=== PATIENT | female | born 1935 | race Caucasian/White ===

== ENCOUNTER 2019-03-06 17:18 | Inpatient (IN) | payer MEDICARE, MEDICAID ==
[~2019-03-06] VITALS: Ht 157.5 cm; Wt 72.6 kg
[~2019-03-06 17:18] MED LIST: ADVAIR 250-501 EACH INH; ALLOPURINOL100 M1 ORAL; ARICEPT10 MG ORAL; ASPIRIN-LOW81 MG ORAL; ATELVIA35 MG ORAL; ATORVASTATIN CA10 MG ORAL; BYSTOLIC10 MG ORAL; CAPTOPRIL25 M1 PO; CYMBALTA30 MG ORAL; EDARBYCLOR 40-1 EAC1 ORAL; GABAPENTIN300 MG ORAL; LASTACAFT3 ML BOTH EYES; NEXIUM40 MG ORAL; PRECOSE50 MG ORAL; RISPERIDONE0.5 MG PO; STARLIX120 MG ORAL; SYNTHROID100 MCG ORAL; VITAMIN D1000 UNI1 ORAL; VITAMIN D250000 UNI1 ORAL
[2019-03-06 17:48] VITALS: BP 162/54
[2019-03-06 18:41] LABS: ANION GAP 7 mmol/L (5-15); BLOOD UREA NITROGEN 21 mg/dL (7-18); CALCIUM 9.3 MG/DL (8.5-10.1); CARBON DIOXIDE 30 MMOL/L (21-32); CHLORIDE 105 MMOL/L (98-107); CREATININE 1.1 MG/DL (0.55-1.30); SODIUM 142 MMOL/L (136-145)
[2019-03-06 18:46] LABS: BASOPHILS % (AUTO) 0.9 % (0.0-2.0); EOSINOPHILS % (AUTO) 1.8 % (0.0-3.0); HEMATOCRIT 37.9 % (37.0-47.0); HEMOGLOBIN 12.2 G/DL (12.0-16.0); LYMPHOCYTES % (AUTO) 21.2 % (20.0-45.0); MEAN CORPUSCULAR VOLUME 85 FL (80-99); MONOCYTES % (AUTO) 12.5 % (1.0-10.0); NEUTROPHILS % (AUTO) 63.6 % (45.0-75.0); PLATELET COUNT 191 K/UL (150-450); RED BLOOD COUNT 4.47 M/UL (4.20-5.40); RED CELL DISTRIBUTION WIDTH 13.2 % (11.6-14.8)
[2019-03-06 18:56] LABS: ALANINE AMINOTRANSFERASE 18 U/L (12-78); ALBUMIN 3.3 G/DL (3.4-5.0); ALBUMIN/GLOBULIN RATIO 0.9 (1.0-2.7); ALKALINE PHOSPHATASE 99 U/L (46-116); ASPARTATE AMINO TRANSFERASE 19 U/L (15-37); BILIRUBIN,TOTAL 0.2 MG/DL (0.2-1.0); CKMB 1.4 NG/ML (0.0-3.6); CREATINE KINASE 64 U/L (26-308)
[2019-03-06 19:03] LABS: APPEARANCE,URINE SLIGHTLY CLOUDY; BILIRUBIN, URINE NEGATIVE (NEGATIVE); COLOR,URINE PALE YELLOW; GLUCOSE, URINE (UA) NEGATIVE (NEGATIVE); KETONES,URINE NEGATIVE (NEGATIVE); LEUKOCYTE ESTERASE ,URINE 2+ (NEGATIVE); NITRITE,URINE POSITIVE (NEGATIVE); PH,URINE 5 (4.5-8.0); PROTEIN,URINE 1+ (NEGATIVE); UROBILINOGEN,URINE NORMAL MG/DL (0.0-1.0)
[2019-03-06 19:52] VITALS: BP 162/54
--- NOTE | 2019-03-06 21:57 | Emergency Room Report ---
History of Present Illness General Chief Complaint: Upper Respiratory Illness Source: Patient, Family Member, Medical Record Present Illness HPI 83-year-old female presents ED for evaluation. Brought in by family for cough shortness of breath for the last few days. States cough is productive with yellowish phlegm. Denies fevers or chills. Denies chest pain. Denies sick contacts or recent travel. No other aggravating relieving factors. Denies any other associated symptoms Allergies: Coded Allergies: No Known Allergies (Unverified , 04/08/14) Patient History Past Medical History: DM, HTN, asthma Pertinent Family History: none Social History: Denies: smoking, alcohol use, drug use Now: No Immunizations: UTD Reviewed Nursing Documentation: PMH: Agreed; PSxH: Agreed Nursing Documentation-PMH Hx Cardiac Problems: Yes Hx Hypertension: Yes Hx Asthma: Yes Hx Diabetes: Yes Hx Cancer: No Hx Gastrointestinal Problems: Yes Hx Neurological Problems: No Review of Systems All Other Systems: negative except mentioned in HPI Physical Exam Vital Signs Date Time Temp Pulse Resp B/P (MAP) Pulse Ox O2 Delivery O2 Flow Rate FiO2 03/06/19 17:31 98.2 54 16 162/54 (90) 94 Room Air 03/06/19 17:46 95 Sp02 EP Interpretation: reviewed, normal General Appearance: no apparent distress, alert, GCS 15, non-toxic Head: normocephalic, atraumatic Eyes: bilateral eye normal inspection, bilateral eye PERRL ENT: hearing grossly normal, normal pharynx, no angioedema, normal voice Neck: full range of motion, supple/symm/no masses Respiratory: chest non-tender, crackles, speaking full sentences Cardiovascular #1: regular rate, rhythm, no edema Cardiovascular #2: 2+ carotid (R), 2+ carotid (L), 2+ radial (R), 2+ radial (L) , 2+ dorsalis pedis (R), 2+ dorsalis pedis (L) Gastrointestinal: normal bowel sounds, non tender, soft, non-distended, no guarding, no rebound Rectal: deferred Genitourinary: normal inspection, no CVA tenderness Musculoskeletal: back normal, gait/station normal, normal range of motion, non- tender Neurologic: alert, oriented x3, responsive, motor strength/tone normal, sensory intact, speech normal Psychiatric: judgement/insight normal, memory normal, mood/affect normal, no suicidal/homicidal ideation Reflexes: 3+ bicep (R), 3+ bicep (L), 3+ tricep (R), 3+ tricep (L), 3+ knee (R) , 3+ knee (L) Skin: normal color, no rash, warm/dry, well hydrated Lymphatic: no adenopathy Medical Decision Making Diagnostic Impression: Primary Impression: CHF exacerbation Qualified Codes: I50.9 - Heart failure, unspecified Additional Impression: UTI (urinary tract infection) Qualified Codes: N39.0 - Urinary tract infection, site not specified ER Course Hospital Course 83-year-old female presents ED complaining of shortness of breath, cough Differential diagnoses include: [place]/unstable angina, contusion, muscle strain, PTX, rib fracture Clinical course Patient placed on stretcher. on radiation monitor. After initial history and physical I ordered labs, EKG, chest x-ray labs reviewed- no leukocytosis, hemoglobin/hematocrit stable, , troponins negative, BNP elevated, UA + bacteria EKG - NSR, no acute ischemic changes interpreted by me Chest x-ray- interstitial congestion, cardiomegaly Antibiotics given. Lasix given. Case discussed with Dr. Ann and he agreed to accept the patient to his service for further care and support I. I feel this is a highly complex case requiring extensive working including EKG/Rhythm strip, Xray/CT/US, Blood/urine lab work, repeat exams while in ED, and administration of strong opiates/narcotics for pain control, admission to hospital or close patient follow up. Diagnosis - CHF exacerbation, UTI admitted to telemetry in serious condition Labs Test 03/06/19 18:10 03/06/19 18:30 White Blood Count 7.0 K/UL (4.8-10.8) Red Blood Count 4.47 M/UL (4.20-5.40) Hemoglobin 12.2 G/DL (12.0-16.0) Hematocrit 37.9 % (37.0-47.0) Mean Corpuscular Volume 85 FL (80-99) Mean Corpuscular Hemoglobin 27.2 PG (27.0-31.0) Mean Corpuscular Hemoglobin Concent 32.2 G/DL (32.0-36.0) Red Cell Distribution Width 13.2 % (11.6-14.8) Platelet Count 191 K/UL (150-450) Mean Platelet Volume 6.1 FL (6.5-10.1) Neutrophils (%) (Auto) 63.6 % (45.0-75.0) Lymphocytes (%) (Auto) 21.2 % (20.0-45.0) Monocytes (%) (Auto) 12.5 % (1.0-10.0) Eosinophils (%) (Auto) 1.8 % (0.0-3.0) Basophils (%) (Auto) 0.9 % (0.0-2.0) Sodium Level 142 MMOL/L (136-145) Potassium Level 4.0 MMOL/L (3.5-5.1) Chloride Level 105 MMOL/L (98-107) Carbon Dioxide Level 30 MMOL/L (21-32) Anion Gap 7 mmol/L (5-15) Blood Urea Nitrogen 21 mg/dL (7-18) Creatinine 1.1 MG/DL (0.55-1.30) Estimat Glomerular Filtration Rate mL/min (>60) Glucose Level 109 MG/DL (74-106) Lactic Acid Level 0.90 mmol/L (0.4-2.0) Calcium Level 9.3 MG/DL (8.5-10.1) Total Bilirubin 0.2 MG/DL (0.2-1.0) Aspartate Amino Transf (AST/SGOT) 19 U/L (15-37) Alanine Aminotransferase (ALT/SGPT) 18 U/L (12-78) Alkaline Phosphatase 99 U/L (46-116) Total Creatine Kinase 64 U/L (26-308) Creatine Kinase MB 1.4 NG/ML (0.0-3.6) Creatine Kinase MB Relative Index 2.1 Troponin I 0.000 ng/mL (0.000-0.056) Pro-B-Type Natriuretic Peptide 1793 pg/mL (0-125) Total Protein 6.9 G/DL (6.4-8.2) Albumin 3.3 G/DL (3.4-5.0) Globulin 3.6 g/dL Albumin/Globulin Ratio 0.9 (1.0-2.7) Urine Color Pale yellow Urine Appearance Slightly cloudy Urine pH 5 (4.5-8.0) Urine Specific [place] 1.015 (1.005-1.035) Urine Protein 1+ (NEGATIVE) Urine Glucose (UA) Negative (NEGATIVE) Urine Ketones Negative (NEGATIVE) Urine Blood Negative (NEGATIVE) Urine Nitrite Positive (NEGATIVE) Urine Bilirubin Negative (NEGATIVE) Urine Urobilinogen Normal MG/DL (0.0-1.0) Urine Leukocyte Esterase 2+ (NEGATIVE) Urine RBC 0 /HPF (0 - 2) Urine WBC 15-20 /HPF (0 - 2) Urine Squamous Epithelial Cells Occasional /LPF Urine Bacteria Many /HPF (NONE) EKG Diagnostic Results Rate: bradycardiac Rhythm: NSR ST Segments: no acute changes ASA given to the pt in ED: No Rhythm Strip Diag. Results EP Interpretation: yes Rhythm: NSR, no PVC's, no ectopy Chest X-Ray Diagnostic Results Chest X-Ray Diagnostic Results : Chest X-Ray Ordered: Yes # of Views/Limited/Complete: 1 View Indication: Shortness of Breath EP Interpretation: Yes Interpretation: no pneumothorax, other - cardiomegaly. interstitial congestion Impression: Other - chf Electronically Signed by: Electronically signed by Hung Miguel MD Last Vital Signs Date Time Temp Pulse Resp B/P (MAP) Pulse Ox O2 Delivery O2 Flow Rate FiO2 03/06/19 19:52 98.2 54 16 162/54 95 Room Air 95 Status: improved Disposition: ADMITTED INPATIENT Condition: Serious Referrals: NON PHYSICIAN (PCP) Hung Miguel MD Mar 06, 2019 21:57
[2019-03-06] MEDS ORDERED: Morphine Sulfate 2mg/ml Inj(IV/IM USE ONLY) IVP PRN (22:30)
[2019-03-06] MEDS ORDERED: Nitroglycerin Subl 0.4mg tab SL PRN (22:30)
[2019-03-06] MEDS ORDERED: dilTIAZem HCl 25mg/5ml Inj IV PRN (22:30)
[2019-03-06] MEDS ORDERED: Albuterol/Ipratropium 3ml neb HHN PRN (22:30)
[2019-03-06] MEDS ORDERED: Miralax 17gm pkt ORAL PRN (22:30)
[2019-03-06 22:40] VITALS: BP 157/63
[2019-03-06] MEDS ORDERED: Promethazine/Codeine 5ml UD ORAL PRN (22:45)
[2019-03-07] VITALS (7 sets, daily range): BP systolic 108–165; BP diastolic 53–78
[2019-03-07] MEDS: Enalaprilat 2.5mg/2ml Inj IV PRN (04:23)
[2019-03-07] MEDS: NovoLOG Insulin Flexpen SUBQ SCH ×4 (06:25→21:03)
[2019-03-07 06:39] LABS: BASOPHILS % (AUTO) 0.3 % (0.0-2.0); EOSINOPHILS % (AUTO) 0.4 % (0.0-3.0); HEMATOCRIT 37.1 % (37.0-47.0); LYMPHOCYTES % (AUTO) 7.6 % (20.0-45.0); MEAN CORPUSCULAR VOLUME 87 FL (80-99); MONOCYTES % (AUTO) 6.8 % (1.0-10.0); NEUTROPHILS % (AUTO) 84.9 % (45.0-75.0); PLATELET COUNT 200 K/UL (150-450); RED BLOOD COUNT 4.27 M/UL (4.20-5.40); RED CELL DISTRIBUTION WIDTH 13.4 % (11.6-14.8); WHITE BLOOD COUNT 10.1 K/UL (4.8-10.8)
[2019-03-07 07:28] LABS: ALANINE AMINOTRANSFERASE 19 U/L (12-78); ALBUMIN 3.2 G/DL (3.4-5.0); ALBUMIN/GLOBULIN RATIO 0.9 (1.0-2.7); ALKALINE PHOSPHATASE 88 U/L (46-116); ANION GAP 9 mmol/L (5-15); ASPARTATE AMINO TRANSFERASE 22 U/L (15-37); BILIRUBIN,TOTAL 0.4 MG/DL (0.2-1.0); BLOOD UREA NITROGEN 20 mg/dL (7-18); CALCIUM 9.3 MG/DL (8.5-10.1); CARBON DIOXIDE 31 MMOL/L (21-32); CHLORIDE 100 MMOL/L (98-107); CHOLESTEROL 128 MG/DL (< 200); CREATININE 1.1 MG/DL (0.55-1.30); HDL CHOLESTEROL 58 MG/DL (40-60); POTASSIUM 3.5 MMOL/L (3.5-5.1); SODIUM 140 MMOL/L (136-145); TRIGLYCERIDES 40 MG/DL (30-150)
[2019-03-07] MEDS: Allopurinol 100mg Tab ORAL SCH (09:28)
[2019-03-07] MEDS: Aspirin Baby 81mg ORAL SCH (09:28)
[2019-03-07] MEDS: DULoxetine 30mg cap ORAL SCH (09:28)
[2019-03-07] MEDS: Heparin 5000 units/ml inj SUBQ SCH ×2 (09:30→20:53)
--- NOTE | 2019-03-07 09:36 | Diagnostic Imaging Report ---
Indication: Chest pain Technique: One view of the chest Comparison: 03/06/2019 Findings: Retrocardiac opacity, likely a hiatal hernia, is again demonstrated. The heart is upper limits normal in size. Mild interstitial prominence appears similar to prior exam, may indicate interstitial congestive changes or could be on the basis senescent changes. No focal airspace consolidation. Pleural spaces are clear. No significant interim change Impression: Unchanged, over one day, findings as above.
--- NOTE | 2019-03-07 09:39 | Diagnostic Imaging Report ---
Indication: Quadrant Technique: One view of the chest Comparison: none Findings: No definite acute infiltrates, effusions, or congestion. Heart is upper limits normal in size. Large retrocardiac opacity likely reflects a hiatal hernia. Impression: No definite acute process Probable large hiatal hernia
--- NOTE | 2019-03-07 13:29 | Consultation ---
History of Present Illness General Chief Complaint: Upper Respiratory Illness Present Illness HPI 83-year-old female with hx of DM, HTN, asthma presented to ED for evaluation cough, shortness of breath for the last few days. States cough is productive with yellowish phlegm. Denies fevers or chills. Denies chest pain. Allergies: Coded Allergies: No Known Allergies (Unverified , 04/08/14) Medication History Scheduled Acarbose (Acarbose), 25 MG ORAL THREE TIMES A DAY, (Reported) Alcaftadine (Lastacaft), 1 DROP BOTH EYES DAILY, (Reported) Allopurinol* (Allopurinol*), 100 MG ORAL DAILY, (Reported) Aspirin (Aspirin EC), 81 MG ORAL DAILY, (Reported) Atorvastatin Calcium* (Lipitor*), 10 MG ORAL BEDTIME, (Reported) Azilsartan Med/Chlorthalidone (Edarbyclor 40-25 Mg Tablet), 1 TAB ORAL DAILY, ( Reported) Captopril (Captopril), 25 MG PO NEEDED, (Reported) Cholecalciferol (Vitamin D3)* (Vitamin D*), 2,000 UNITS ORAL DAILY, (Reported) Donepezil Hcl* (Aricept*), 10 MG ORAL DAILY, (Reported) Duloxetine Hcl* (Cymbalta*), 30 MG ORAL DAILY, (Reported) Ergocalciferol (Vitamin D2)* (Vitamin D*), 50,000 UNIT ORAL ONCE A WEEK, ( Reported) Esomeprazole Magnesium (Nexium), 40 MG ORAL DAILY, (Reported) Fluticasone/Salmeterol (Advair 250-50 Diskus), 1 PUFF INH NEEDED, (Reported) Gabapentin* (Gabapentin*), 300 MG ORAL BEDTIME, (Reported) Levothyroxine Sodium* (Synthroid*), 100 MCG ORAL DAILY, (Reported) Nateglinide (Starlix), 120 MG ORAL BID, (Reported) Nebivolol Hcl (Bystolic*), 5 MG ORAL BEDTIME, (Reported) Risedronate Sodium (Atelvia), 35 MG ORAL ONCE A WEEK, (Reported) Risperidone (Risperidone), 0.5 MG PO BEDTIME, (Reported) Patient History Healthcare decision maker Resuscitation status Full Code Advanced Directive on File Past Medical/Surgical History Past Medical/Surgical History: (1) Hypertension (2) History of asthma Review of Systems All Other Systems: negative except mentioned in HPI Physical Exam General Appearance: WD/WN, no apparent distress Lines, tubes and drains: peripheral HEENT: normocephalic, atraumatic Neck: non-tender, normal alignment Respiratory/Chest: chest wall non-tender, lungs clear Breasts: no masses Cardiovascular/Chest: normal peripheral pulses Abdomen: normal bowel sounds, non tender Genitourinary/Rectal: normal genital exam Extremities: normal range of motion Last 24 Hour Vital Signs Date Time Temp Pulse Resp B/P (MAP) Pulse Ox O2 Delivery O2 Flow Rate FiO2 03/07/19 12:00 98.4 64 19 127/71 (89) 96 03/07/19 11:47 68 18 96 Room Air 21 03/07/19 11:47 68 18 96 Room Air 21 03/07/19 09:00 Room Air 03/07/19 08:04 64 18 98 Room Air 21 03/07/19 08:00 64 18 98 Room Air 21 03/07/19 08:00 60 03/07/19 08:00 97.2 62 18 108/70 (83) 99 03/07/19 04:23 165/67 03/07/19 04:00 99.8 71 20 165/66 (99) 94 03/07/19 04:00 66 03/07/19 02:39 63 16 92 Room Air 21 03/07/19 02:39 65 16 94 Room Air 21 03/07/19 00:00 61 03/07/19 00:00 98.0 58 20 158/65 (96) 95 03/06/19 22:40 58 03/06/19 22:40 98.0 61 20 157/63 (94) 98 03/06/19 22:40 Room Air 03/06/19 22:20 98.2 54 16 132/67 95 Room Air 95 03/06/19 19:52 98.2 54 16 162/54 95 Room Air 95 03/06/19 17:48 98.2 54 16 162/54 95 Room Air 03/06/19 17:46 54 16 Room Air 95 03/06/19 17:31 98.2 54 16 162/54 (90) 94 Room Air Intake and Output 03/06/19 03/07/19 19:00 07:00 Intake Total 120 ml Output Total 3800 ml Balance -3680 ml Intake Oral 120 ml Output Urine Total 3800 ml Laboratory Tests Test 03/06/19 18:10 03/06/19 18:30 03/07/19 04:50 White Blood Count 7.0 K/UL (4.8-10.8) 10.1 K/UL (4.8-10.8) Red Blood Count 4.47 M/UL (4.20-5.40) 4.27 M/UL (4.20-5.40) Hemoglobin 12.2 G/DL (12.0-16.0) 12.0 G/DL (12.0-16.0) Hematocrit 37.9 % (37.0-47.0) 37.1 % (37.0-47.0) Mean Corpuscular Volume 85 FL (80-99) 87 FL (80-99) Mean Corpuscular Hemoglobin 27.2 PG (27.0-31.0) 28.1 PG (27.0-31.0) Mean Corpuscular Hemoglobin Concent 32.2 G/DL (32.0-36.0) 32.3 G/DL (32.0-36.0) Red Cell Distribution Width 13.2 % (11.6-14.8) 13.4 % (11.6-14.8) Platelet Count 191 K/UL (150-450) 200 K/UL (150-450) Mean Platelet Volume 6.1 FL (6.5-10.1) L 6.5 FL (6.5-10.1) Neutrophils (%) (Auto) 63.6 % (45.0-75.0) 84.9 % (45.0-75.0) H Lymphocytes (%) (Auto) 21.2 % (20.0-45.0) 7.6 % (20.0-45.0) L Monocytes (%) (Auto) 12.5 % (1.0-10.0) H 6.8 % (1.0-10.0) Eosinophils (%) (Auto) 1.8 % (0.0-3.0) 0.4 % (0.0-3.0) Basophils (%) (Auto) 0.9 % (0.0-2.0) 0.3 % (0.0-2.0) Sodium Level 142 MMOL/L (136-145) 140 MMOL/L (136-145) Potassium Level 4.0 MMOL/L (3.5-5.1) 3.5 MMOL/L (3.5-5.1) Chloride Level 105 MMOL/L (98-107) 100 MMOL/L (98-107) Carbon Dioxide Level 30 MMOL/L (21-32) 31 MMOL/L (21-32) Anion Gap 7 mmol/L (5-15) 9 mmol/L (5-15) Blood Urea Nitrogen 21 mg/dL (7-18) H 20 mg/dL (7-18) H Creatinine 1.1 MG/DL (0.55-1.30) 1.1 MG/DL (0.55-1.30) Estimat Glomerular Filtration Rate mL/min (>60) mL/min (>60) Glucose Level 109 MG/DL (74-106) H 124 MG/DL (74-106) H Lactic Acid Level 0.90 mmol/L (0.4-2.0) Calcium Level 9.3 MG/DL (8.5-10.1) 9.3 MG/DL (8.5-10.1) Total Bilirubin 0.2 MG/DL (0.2-1.0) 0.4 MG/DL (0.2-1.0) Aspartate Amino Transf (AST/SGOT) 19 U/L (15-37) 22 U/L (15-37) Alanine Aminotransferase (ALT/SGPT) 18 U/L (12-78) 19 U/L (12-78) Alkaline Phosphatase 99 U/L (46-116) 88 U/L (46-116) Total Creatine Kinase 64 U/L (26-308) Creatine Kinase MB 1.4 NG/ML (0.0-3.6) Creatine Kinase MB Relative Index 2.1 Troponin I 0.000 ng/mL (0.000-0.056) 0.000 ng/mL (0.000-0.056) Pro-B-Type Natriuretic Peptide 1793 pg/mL (0-125) H 2087 pg/mL (0-125) H Total Protein 6.9 G/DL (6.4-8.2) 6.9 G/DL (6.4-8.2) Albumin 3.3 G/DL (3.4-5.0) L 3.2 G/DL (3.4-5.0) L Globulin 3.6 g/dL 3.7 g/dL Albumin/Globulin Ratio 0.9 (1.0-2.7) L 0.9 (1.0-2.7) L Urine Color Pale yellow Urine Appearance Slightly cloudy Urine pH 5 (4.5-8.0) Urine Specific [place] 1.015 (1.005-1.035) Urine Protein 1+ (NEGATIVE) H Urine Glucose (UA) Negative (NEGATIVE) Urine Ketones Negative (NEGATIVE) Urine Blood Negative (NEGATIVE) Urine Nitrite Positive (NEGATIVE) H Urine Bilirubin Negative (NEGATIVE) Urine Urobilinogen Normal MG/DL (0.0-1.0) Urine Leukocyte Esterase 2+ (NEGATIVE) H Urine RBC 0 /HPF (0 - 2) Urine WBC 15-20 /HPF (0 - 2) H Urine Squamous Epithelial Cells Occasional /LPF Urine Bacteria Many /HPF (NONE) H Prothrombin Time 10.8 SEC (9.30-11.50) Prothromb Time International Ratio 1.0 (0.9-1.1) Activated Partial Thromboplast Time 28 SEC (23-33) C-Reactive Protein, Quantitative 4.5 mg/dL (0.00-0.90) H Triglycerides Level 40 MG/DL (30-150) Cholesterol Level 128 MG/DL (< 200) LDL Cholesterol 64 mg/dL (<100) HDL Cholesterol 58 MG/DL (40-60) Cholesterol/HDL Ratio 2.2 (3.3-4.4) L Thyroid Stimulating Hormone (TSH) 0.563 uiU/mL (0.358-3.740) Microbiology Date/Time Source Procedure Growth Status 03/06/19 18:30 Urine,Clean Catch Urine Culture - Preliminary Gram Negative Bacillus 1 Resulted Height (Feet): 5 Height (Inches): 2.00 Weight (Pounds): 160 Medications Current Medications Medications (Trade) Dose Ordered Sig/Gino Route PRN Reason Start Time Stop Time Status Last Admin Dose Admin Acetaminophen (Tylenol) 650 mg Q4H PRN ORAL FEVER 03/06/19 22:30 04/05/19 22:29 Albuterol/ Ipratropium (Albuterol/ Ipratropium) 3 ml EVERY 4 HOURS PRN HHN Shortness of Breath 03/06/19 22:30 03/11/19 22:29 Allopurinol (Zyloprim) 100 mg DAILY ORAL 03/07/19 09:00 04/06/19 08:59 03/07/19 09:28 Aspirin (ASA) 162 mg DAILY ORAL 03/07/19 09:00 04/06/19 08:59 03/07/19 09:28 Dextrose (Dextrose 50%) STAT PRN IV Hypoglycemia 03/06/19 22:45 04/05/19 22:44 Diltiazem HCl (Cardizem) 10 mg EVERY HOUR PRN IV heart rate more than 120, 03/06/19 22:30 04/05/19 22:29 Duloxetine HCl (Cymbalta) 30 mg DAILY ORAL 03/07/19 09:00 04/06/19 08:59 03/07/19 09:28 Enalaprilat (Vasotec) 2.5 mg EVERY 6 HOURS PRN IV sbp more than 160 03/06/19 22:30 04/05/19 22:29 03/07/19 04:23 Gabapentin (Neurontin) 300 mg BEDTIME ORAL 03/07/19 21:00 04/06/19 20:59 Heparin Sodium (Porcine) (Heparin 5000 units/ml) 5,000 units EVERY 12 HOURS SUBQ 03/07/19 09:00 04/06/19 08:59 03/07/19 09:30 Insulin Aspart (NovoLOG) BEFORE MEALS AND HS SUBQ 03/07/19 06:30 04/06/19 06:29 03/07/19 06:25 Levofloxacin 150 ml @ 150 mls/hr Q48H IVPB 03/08/19 20:00 03/15/19 19:59 Levothyroxine Sodium (Synthroid) 100 mcg ACBREAKFAST ORAL 03/07/19 06:30 04/06/19 06:29 03/07/19 06:24 Morphine Sulfate (Morphine Sulfate) 2 mg EVERY 4 HOURS PRN IVP severe Pain (Pain Scale 7-10) 03/06/19 22:30 03/13/19 22:29 Nateglinide (Starlix) 120 mg BID ORAL 03/07/19 09:00 04/06/19 08:59 03/07/19 09:28 Nebivolol (Bystolic) 5 mg BEDTIME ORAL 03/07/19 21:00 04/06/19 20:59 Nitroglycerin (Ntg) 0.4 mg Q5M PRN SL Prn Chest Pain 03/06/19 22:30 04/05/19 22:29 Ondansetron HCl (Zofran) 4 mg Q6H PRN IVP Nausea & Vomiting 03/06/19 22:30 04/05/19 22:29 Polyethylene Glycol (Miralax) 17 gm DAILYPRN PRN ORAL Constipation 03/06/19 22:30 04/05/19 22:29 Promethazine HCl/ Codeine (Phenergan with Codeine) 5 ml Q4H PRN ORAL For Cough 03/06/19 22:45 04/05/19 22:44 Temazepam (Restoril) 15 mg HSPRN PRN ORAL Insomnia 03/06/19 22:30 03/13/19 22:29 Assessment/Plan Problem List: (1) Purulent bronchitis ICD Codes: J41.1 - Mucopurulent chronic bronchitis SNOMED: 08988501 (2) Acute asthma exacerbation ICD Codes: J45.901 - Unspecified asthma with (acute) exacerbation SNOMED: 992197980 (3) Hypertension ICD Codes: I10 - Essential (primary) hypertension SNOMED: 21580925 (4) History of asthma ICD Codes: Z87.09 - Personal history of other diseases of the respiratory system SNOMED: 883274426 Assessment/Plan: respiratory treatment check sputum iv steroids iv abx echocardiogram dvt prophylaxis. monitor BP and BNP Aurora Gray MD Mar 07, 2019 13:29
--- NOTE | 2019-03-07 19:01 | History & Physical ---
History and Physical History & Physicial Rob Ann MD Mar 07, 2019 19:01
--- NOTE | 2019-03-07 20:21 | Cardiology Progress Note ---
Assessment/Plan Assessment/Plan [id number] Objective Last 24 Hour Vital Signs Date Time Temp Pulse Resp B/P (MAP) Pulse Ox O2 Delivery O2 Flow Rate FiO2 03/07/19 19:19 Room Air 03/07/19 19:18 72 20 95 Room Air 21 03/07/19 19:18 75 20 95 Room Air 21 03/07/19 16:00 98.0 74 20 156/78 (104) 93 03/07/19 16:00 73 03/07/19 14:59 69 18 95 Room Air 21 03/07/19 14:59 67 18 94 Room Air 21 03/07/19 12:00 98.4 64 19 127/71 (89) 96 03/07/19 12:00 66 03/07/19 11:47 68 18 96 Room Air 21 03/07/19 11:47 68 18 96 Room Air 21 03/07/19 09:00 Room Air 03/07/19 08:04 64 18 98 Room Air 21 03/07/19 08:00 64 18 98 Room Air 21 03/07/19 08:00 60 03/07/19 08:00 97.2 62 18 108/70 (83) 99 03/07/19 08:00 64 18 98 Room Air 21 03/07/19 04:23 165/67 03/07/19 04:00 99.8 71 20 165/66 (99) 94 03/07/19 04:00 66 03/07/19 02:39 63 16 92 Room Air 21 03/07/19 02:39 65 16 94 Room Air 03/07/19 00:00 61 03/07/19 00:00 98.0 58 20 158/65 (96) 95 03/06/19 22:40 58 03/06/19 22:40 98.0 61 20 157/63 (94) 98 03/06/19 22:40 Room Air 03/06/19 22:20 98.2 54 16 132/67 95 Room Air 95 Intake and Output 03/06/19 03/07/19 18:59 06:59 Output Total 3800 ml Balance -3800 ml Output Urine Total 3800 ml Laboratory Tests Test 03/07/19 04:50 White Blood Count 10.1 K/UL (4.8-10.8) Red Blood Count 4.27 M/UL (4.20-5.40) Hemoglobin 12.0 G/DL (12.0-16.0) Hematocrit 37.1 % (37.0-47.0) Mean Corpuscular Volume 87 FL (80-99) Mean Corpuscular Hemoglobin 28.1 PG (27.0-31.0) Mean Corpuscular Hemoglobin Concent 32.3 G/DL (32.0-36.0) Red Cell Distribution Width 13.4 % (11.6-14.8) Platelet Count 200 K/UL (150-450) Mean Platelet Volume 6.5 FL (6.5-10.1) Neutrophils (%) (Auto) 84.9 % (45.0-75.0) H Lymphocytes (%) (Auto) 7.6 % (20.0-45.0) L Monocytes (%) (Auto) 6.8 % (1.0-10.0) Eosinophils (%) (Auto) 0.4 % (0.0-3.0) Basophils (%) (Auto) 0.3 % (0.0-2.0) Prothrombin Time 10.8 SEC (9.30-11.50) Prothromb Time International Ratio 1.0 (0.9-1.1) Activated Partial Thromboplast Time 28 SEC (23-33) Sodium Level 140 MMOL/L (136-145) Potassium Level 3.5 MMOL/L (3.5-5.1) Chloride Level 100 MMOL/L (98-107) Carbon Dioxide Level 31 MMOL/L (21-32) Anion Gap 9 mmol/L (5-15) Blood Urea Nitrogen 20 mg/dL (7-18) H Creatinine 1.1 MG/DL (0.55-1.30) Estimat Glomerular Filtration Rate mL/min (>60) Glucose Level 124 MG/DL (74-106) H Calcium Level 9.3 MG/DL (8.5-10.1) Total Bilirubin 0.4 MG/DL (0.2-1.0) Aspartate Amino Transf (AST/SGOT) 22 U/L (15-37) Alanine Aminotransferase (ALT/SGPT) 19 U/L (12-78) Alkaline Phosphatase 88 U/L (46-116) Troponin I 0.000 ng/mL (0.000-0.056) C-Reactive Protein, Quantitative 4.5 mg/dL (0.00-0.90) H Pro-B-Type Natriuretic Peptide 2087 pg/mL (0-125) H Total Protein 6.9 G/DL (6.4-8.2) Albumin 3.2 G/DL (3.4-5.0) L Globulin 3.7 g/dL Albumin/Globulin Ratio 0.9 (1.0-2.7) L Triglycerides Level 40 MG/DL (30-150) Cholesterol Level 128 MG/DL (< 200) LDL Cholesterol 64 mg/dL (<100) HDL Cholesterol 58 MG/DL (40-60) Cholesterol/HDL Ratio 2.2 (3.3-4.4) L Thyroid Stimulating Hormone (TSH) 0.563 uiU/mL (0.358-3.740) Microbiology Date/Time Source Procedure Growth Status 03/06/19 18:30 Urine,Clean Catch Urine Culture - Preliminary Gram Negative Bacillus 1 Resulted Graham Almendarez MD Mar 07, 2019 20:21
--- NOTE | 2019-03-07 22:00 | Consultation ---
DATE OF CONSULTATION: 03/07/2019 CARDIOLOGY CONSULTATION CONSULTING PHYSICIAN: Graham Almendarez M.D. REFERRING PHYSICIAN: Rob Ann M.D. REASON FOR REFERRAL: Congestive heart failure. HISTORY OF PRESENT ILLNESS: This is an elderly female, who is somewhat of a poor historian and really I am not able to get much in terms of history from her. Information is obtained from the patient's chart, brought by family because of cough and shortness of breath for the last few days. Cough is productive of yellow phlegm. Denies any fevers or chills. Denies any chest pain. Denied sick contacts or travel history. No aggravating or relieving factors were identified, and the patient was admitted to the hospital because of congestive heart failure. The patient's records from [facility] were reviewed. The patient was admitted and discharged from [facility] on 01/16/2019. PAST MEDICAL HISTORY: Includes problems of viral bronchitis, elevated troponin in the setting of acute coronary syndrome, history of coronary disease, status post drug-eluting stents in the right coronary artery x2 in 12/2018, hypertension, hyperlipidemia, diabetes mellitus, hypothyroidism, glaucoma, kidney failure was felt to be secondary to decreased p.o. intake and contrast exposure that resolved and improved and she was subsequently discharged home. Prior to that, she has been admitted to the hospital because of worsening shortness of breath on exertion and intermittent substernal chest pains over the past several weeks prior to admission, was found to have a 12% reversible defect in the right coronary artery and underwent a left and PCI for 80% ostial RCA stenosis. Her other history includes history of asthma, systemic hypertension, heart failure, dementia, depression, gastroesophageal reflux disorder, hyperuricemia, hypothyroidism, neuropathy, osteoarthritis, osteoporosis, and vitamin D deficiency. She has had left breast lumpectomy 25 years ago. SOCIAL HISTORY: She does not smoke. She is single at this time. She does not drink alcoholic beverages. FAMILY HISTORY: She has a family history includes cardiomyopathy in her mother and heart disease in her mother. No other significant medical problems. REVIEW OF SYSTEMS: Unable to obtain. PHYSICAL EXAMINATION: GENERAL: Shows to be elderly female, in no respiratory distress. Awake and responsive. NECK: Supple. No jugular venous distention. LUNGS: There are crackles noted at the left base as well as right base. CARDIAC: Regular rate and rhythm. Systolic ejection murmur. No heaves or thrills or gallops noted. ABDOMEN: Soft, nontender. Positive bowel sounds. EXTREMITIES: There is some erythema of the boggs area and some edema. There is some contraction of this and suggestive of volume loss, possibly from fluid. NEUROLOGICAL: She is awake and responsive. LABORATORY AND DIAGNOSTIC DATA: Her laboratories include a white count of 10, hemoglobin of 12, and platelet count of 200. Sodium is 140, potassium 3.5, chloride 100, bicarbonate 31, BUN of 20, creatinine 1.1, and glucose of 124. CRP of 4.5. ProBNP of 2087. Albumin of 3.2. TSH is 0.563. Coags, INR of 1 and PTT of 28. Urinalysis shows 15 to 20 wbcs and positive nitrites and 2+ leukocyte esterase. Urine, Gram-negative bacilli growing. Chest x-ray from today is unchanged, hiatal hernia, mild interstitial prominence and possibly failure. ASSESSMENT AND PLAN: 1. Coronary artery disease with recent right coronary artery stenting. 2. Status post recent contrast nephropathy and dehydration related. 3. Diabetes mellitus. 4. Hypertension history. 5. Hyperlipidemia. 6. Hypothyroidism. 7. Glaucoma. 8. Acute urinary tract infection. 9. failure. This patient was seen in cardiac consultation. The patient was brought in because of cough and sputum production, likely from infectious possibly bronchitis and she may have some findings suggestive of congestive heart failure, but they are not prominent. She certainly needs antibiotic treatment for urinary tract infection. She has no evidence of coronary syndrome based on cardiac enzyme . Her electrocardiogram that was performed today shows right bundle-branch conduction defect with some nonspecific T-wave changes. Echocardiogram seemed to show normal left ventricular systolic function, no significant valvular pathology. The patient will be followed, but needs probably treatment for underlying urinary tract infection and/or upper respiratory tract infection as well. Low-dose diuretics may not be a bad idea at least for the time being, but I would not leave her on diuretics for the detention. Graham Almendarez M.D. : JOSE ANTONIO JOB#: [id number] CC:
--- NOTE | 2019-03-08 01:45 | History and Physical Report ---
DATE OF ADMISSION: 03/06/2019 CHIEF COMPLAINT: Shortness of breath. HISTORY: This is an 83-year-old very delightful Sammarinese speaking female with past medical history significant for diabetes type 2, hypertension, asthma, history of hypothyroidism, gout, morbid obesity, congestive heart failure, who has presented to the hospital complaining about shortness of breath and cough for few days. Cough has been productive with yellowish sputum. Denies any fever or chills. Denies any nausea or vomiting. Denies any chest pain. History is very limited secondary to the patient's status language barrier. History is mostly taken from the ER chart and prior admission. Shortly after initial evaluation in the emergency, the patient was admitted to the hospital with shortness of breath and cough, possible due to the bronchopneumonia with acute asthma exacerbation. PAST MEDICAL HISTORY/PAST SURGICAL HISTORY: Significant for congestive heart failure, diabetes type 2, hypertension, asthma, hypothyroidism, gout, and obesity. MEDICATIONS AT HOME: Significant for 25 mg 3 times a day. The patient is on the Lastacaft eye drop 1 drop twice a day, allopurinol 100 mg daily, aspirin 81 mg daily, and atorvastatin 10 mg at bedtime. The patient is on Edarbyclor 40/25 one tablet p.o. daily, captopril 25 mg as needed, vitamin D 2000 international units daily, Aricept 10 mg daily, Cymbalta 30 mg daily, vitamin D 50,000 weekly, Nexium 40 mg daily, Advair 250/50 one puff twice a day, gabapentin 200 mg at bedtime, levothyroxine 100 mcg daily, Starlix 120 twice a day, Bystolic 5 mg at bedtime, and Atelvia 35 mg weekly, and risperidone 0.5 mg p.o. nightly. ALLERGIES: No known drug allergies. SOCIAL HISTORY: No smoking, alcohol, or drugs. FAMILY HISTORY: Noncontributory. REVIEW OF SYSTEMS: Mostly as above. Denies any dysuria, frequency, or hematuria. Complained about cough and fever. Denies any hemoptysis or hematochezia. Denies any suicidal or homicidal ideation. Denies any fall or head trauma. PHYSICAL EXAMINATION: VITAL SIGNS: On admission, temperature 98.2, pulse of 54, respirations 16, and blood pressure 162/54. GENERAL: The patient is awake, responsive, and in no acute distress. HEAD AND NECK: Pupils are equal and reactive to light. Anicteric. NECK: Supple. No jugular venous distention. LUNGS: Good air entry. Expiratory wheezes. No rhonchi. HEART: S1, S2. Distant heart sounds. No murmur or gallops. ABDOMEN: Soft, nondistended, and nontender. Morbidly obese. EXTREMITIES: No cyanosis or clubbing. A +1 edema of bilateral lower extremity with hyperpigmentation and erythema on the bilateral ankle at the ankle area. RECTAL/GENITOURINARY: Refused and deferred. PSYCHIATRIC: Mood and affect is intact. NEUROLOGIC: Cranial nerves II through XII grossly intact. Motor is 5/5 in all extremities. Gait was not assessed. LABORATORY DATA: On admission, WBC of 7.0, hemoglobin 12, hematocrit 37, and platelets 190,000. Sodium 142, potassium 4.0, chloride 105, bicarb 30, BUN 21, and creatinine 1.1. Glucose is 109. Calcium is 9.3. ProBNP of 1793. First and second troponin 0.00. PT of 10, INR 1.0, and PTT of 28. Urinalysis, +1 protein, positive nitrite, +2 leukocytes, and many bacteria. Urinalysis showed the gram-negative bacilli. Chest x-ray, no definite acute process, probable large hiatal hernia. No infiltrate was identified. Repeat chest x-ray again no changes. ASSESSMENT: 1. Shortness of breath and cough, possible due to the acute bronchopneumonia versus purulent bronchitis. 2. Acute gram-negative janice bacilli urinary tract infection. 3. Acute asthma exacerbation. 4. Hypertension. 5. Morbid obesity. 6. Hypothyroidism. 7. Diabetes type 2. 8. History of gout. PLAN: 1. Admit the patient to telemetry. 2. We will follow up with Dr. Gray, Pulmonary Critical Care. 3. Code status is Full Code. 4. Broad-spectrum antibiotics with Levaquin. 5. We will monitor laboratory closely as well as culture. 6. Nebulizer treatments. 7. Follow up with PT mobility study. Rob Ann M.D. DR: SHEELA JOB#: [id number] CC:
[2019-03-08 04:00] VITALS: BP 123/56
[2019-03-08] MEDS: NovoLOG Insulin Flexpen SUBQ SCH ×4 (05:52→20:57)
[2019-03-08 08:00] VITALS: BP 128/64
--- NOTE | 2019-03-08 08:28 | Pulmonology Progress Note ---
Assessment/Plan Assessment/Plan ASSESSMENT Acute asthma exacerbation Probably purulent bronchitis CHF Hypertension UTI with E coli Hypertension Diabetes mellitus Hypothyroidism CAD with hx of recent stent placement Gout Obesity PLAN OF CARE telemetry O2 titrate to keep pulse ox above 90% pulm toilet with bronchodilator prn antitussive PRN UCX + Ecoli dc Levaquin ( R), start ceftriaxone, avoid Bactrim given recent contrast nephropathy serial troponin x2- negative status post Lasix x1 Echo with pEF 55 and RVSP 23; moderate aortic regurgitation ; mild left LVH cardio on board , no evidence of CHF decompensation serial troponin negative, ECG no acute ischemic changes; pt ruled out fro acute OR leg edema chronic -as per patient ( always has it) continue aspirin, beta-annamaria BP management with beta-annamaria -stable, mild galilea in 50 tele SB, no block, no pauses lipid panel stable BS management with Starlix + SSI prn check HgA1c DVT prophylaxis supportive care case discussed and evaluated by supervising physician Subjective Allergies: Coded Allergies: No Known Allergies (Unverified , 04/08/14) Subjective denies chest pain, SOB while questioned about leg edema, stated that it's always there no fevers on RA, pulse ox stable SB on tele Objective Last 24 Hour Vital Signs Date Time Temp Pulse Resp B/P (MAP) Pulse Ox O2 Delivery O2 Flow Rate FiO2 03/08/19 04:00 97.5 52 20 123/56 (78) 96 03/08/19 03:59 50 03/08/19 03:20 Room Air 03/08/19 03:20 Room Air 03/07/19 23:53 65 03/07/19 23:43 100.0 65 20 133/53 (79) 93 03/07/19 23:12 Room Air 03/07/19 23:10 78 18 96 Room Air 21 03/07/19 22:00 100.5 03/07/19 22:00 100.5 03/07/19 21:00 Room Air 03/07/19 20:00 101.5 81 24 142/69 (93) 91 03/07/19 19:56 80 03/07/19 19:19 Room Air 03/07/19 19:18 72 20 95 Room Air 21 03/07/19 19:18 75 20 95 Room Air 21 03/07/19 16:00 98.0 74 20 156/78 (104) 93 03/07/19 16:00 73 03/07/19 14:59 69 18 95 Room Air 21 03/07/19 14:59 67 18 94 Room Air 21 03/07/19 12:00 98.4 64 19 127/71 (89) 96 03/07/19 12:00 66 03/07/19 11:47 68 18 96 Room Air 21 03/07/19 11:47 68 18 96 Room Air 21 03/07/19 09:00 Room Air Intake and Output 03/07/19 03/08/19 19:00 07:00 Intake Total 260 ml Output Total 500 ml Balance -240 ml Intake Oral 260 ml Output Urine Total 500 ml # Voids 3 3 # Bowel Movements 1 General Appearance: no acute distress, other - awake, alert, forgetful Mexican speaking female HEENT: normocephalic, atraumatic, anicteric, mucous membranes moist Respiratory/Chest: lungs clear - with moderate air exchange , no respiratory distress, no accessory muscle use Cardiovascular: normal rate, bradycardia - in 50 th Abdomen: normal bowel sounds, soft, non tender Extremities: pedal pulses normal, other - + 1 edema Neurologic/Psychiatric: abnormal gait, alert, responsive Musculoskeletal: atrophy - BLE Microbiology Date/Time Source Procedure Growth Status 03/06/19 18:20 Blood Blood Culture - Preliminary NO GROWTH AFTER 24 HOURS Resulted 03/06/19 18:10 Blood Blood Culture - Preliminary NO GROWTH AFTER 24 HOURS Resulted 03/06/19 18:30 Urine,Clean Catch Urine Culture - Final Escherichia Coli Complete Laboratory Tests 03/07/19 21:55: Troponin I 0.009 Current Medications Medications (Trade) Dose Ordered Sig/Gino Route PRN Reason Start Time Stop Time Status Last Admin Dose Admin Acetaminophen (Tylenol) 650 mg Q4H PRN ORAL FEVER 03/06/19 22:30 04/05/19 22:29 03/07/19 20:44 Albuterol/ Ipratropium (Albuterol/ Ipratropium) 3 ml EVERY 4 HOURS PRN HHN Shortness of Breath 03/06/19 22:30 03/11/19 22:29 Allopurinol (Zyloprim) 100 mg DAILY ORAL 03/07/19 09:00 04/06/19 08:59 03/07/19 09:28 Aspirin (ASA) 162 mg DAILY ORAL 03/07/19 09:00 04/06/19 08:59 03/07/19 09:28 Dextrose (Dextrose 50%) STAT PRN IV Hypoglycemia 03/06/19 22:45 04/05/19 22:44 Duloxetine HCl (Cymbalta) 30 mg DAILY ORAL 03/07/19 09:00 04/06/19 08:59 03/07/19 09:28 Enalaprilat (Vasotec) 2.5 mg EVERY 6 HOURS PRN IV sbp more than 160 03/06/19 22:30 04/05/19 22:29 03/07/19 04:23 Gabapentin (Neurontin) 300 mg BEDTIME ORAL 03/07/19 21:00 04/06/19 20:59 03/07/19 20:45 Heparin Sodium (Porcine) (Heparin 5000 units/ml) 5,000 units EVERY 12 HOURS SUBQ 03/07/19 09:00 04/06/19 08:59 03/07/19 20:53 Insulin Aspart (NovoLOG) BEFORE MEALS AND HS SUBQ 03/07/19 06:30 04/06/19 06:29 03/08/19 05:52 Levofloxacin 150 ml @ 150 mls/hr Q48H IVPB 03/08/19 20:00 03/15/19 19:59 Levothyroxine Sodium (Synthroid) 100 mcg ACBREAKFAST ORAL 03/07/19 06:30 04/06/19 06:29 03/08/19 05:47 Nateglinide (Starlix) 120 mg BID ORAL 03/07/19 09:00 04/06/19 08:59 03/07/19 17:08 Nebivolol (Bystolic) 5 mg BEDTIME ORAL 03/07/19 21:00 04/06/19 20:59 03/07/19 20:45 Nitroglycerin (Ntg) 0.4 mg Q5M PRN SL Prn Chest Pain 03/06/19 22:30 04/05/19 22:29 Polyethylene Glycol (Miralax) 17 gm DAILYPRN PRN ORAL Constipation 03/06/19 22:30 04/05/19 22:29 Promethazine HCl/ Codeine (Phenergan with Codeine) 5 ml Q4H PRN ORAL For Cough 03/06/19 22:45 04/05/19 22:44 Temazepam (Restoril) 15 mg HSPRN PRN ORAL Insomnia 03/06/19 22:30 03/13/19 22:29 Hetal Samuels NP Mar 08, 2019 08:28
[2019-03-08] MEDS: DULoxetine 30mg cap ORAL SCH (09:48)
[2019-03-08] MEDS: Allopurinol 100mg Tab ORAL SCH (09:48)
[2019-03-08] MEDS: Heparin 5000 units/ml inj SUBQ SCH ×2 (09:49→20:57)
[2019-03-08] MEDS: Aspirin Baby 81mg ORAL SCH (09:50)
[2019-03-08 12:00] VITALS: BP 131/53
[2019-03-08] MEDS: cefTRIAXone 1 GM in D5W 55 ML IVPB SCH (12:26)
--- NOTE | 2019-03-08 14:17 | Internal Med Progress Note ---
Subjective Date of Service: Mar 08, 2019 Physician Name Sanjeev Stockton Attending Physician Rob Ann MD Current Medications Medications (Trade) Dose Ordered Sig/Gino Route PRN Reason Start Time Stop Time Status Last Admin Dose Admin Acetaminophen (Tylenol) 650 mg Q4H PRN ORAL FEVER 03/06/19 22:30 04/05/19 22:29 03/07/19 20:44 Albuterol/ Ipratropium (Albuterol/ Ipratropium) 3 ml EVERY 4 HOURS PRN HHN Shortness of Breath 03/06/19 22:30 03/11/19 22:29 Allopurinol (Zyloprim) 100 mg DAILY ORAL 03/07/19 09:00 04/06/19 08:59 03/08/19 09:48 Aspirin (ASA) 162 mg DAILY ORAL 03/07/19 09:00 04/06/19 08:59 03/08/19 09:50 Ceftriaxone Sodium 1 gm/ Dextrose 55 ml @ 110 mls/hr DAILY IVPB 03/08/19 12:00 03/15/19 11:59 03/08/19 12:26 Dextrose (Dextrose 50%) STAT PRN IV Hypoglycemia 03/06/19 22:45 04/05/19 22:44 Duloxetine HCl (Cymbalta) 30 mg DAILY ORAL 03/07/19 09:00 04/06/19 08:59 03/08/19 09:48 Enalaprilat (Vasotec) 2.5 mg EVERY 6 HOURS PRN IV sbp more than 160 03/06/19 22:30 04/05/19 22:29 03/07/19 04:23 Gabapentin (Neurontin) 300 mg BEDTIME ORAL 03/07/19 21:00 04/06/19 20:59 03/07/19 20:45 Heparin Sodium (Porcine) (Heparin 5000 units/ml) 5,000 units EVERY 12 HOURS SUBQ 03/07/19 09:00 04/06/19 08:59 03/08/19 09:49 Insulin Aspart (NovoLOG) BEFORE MEALS AND HS SUBQ 03/07/19 06:30 04/06/19 06:29 03/08/19 12:25 Levothyroxine Sodium (Synthroid) 100 mcg ACBREAKFAST ORAL 03/07/19 06:30 04/06/19 06:29 03/08/19 05:47 Nateglinide (Starlix) 120 mg BID ORAL 03/07/19 09:00 04/06/19 08:59 03/08/19 09:48 Nebivolol (Bystolic) 5 mg BEDTIME ORAL 03/07/19 21:00 04/06/19 20:59 03/07/19 20:45 Nitroglycerin (Ntg) 0.4 mg Q5M PRN SL Prn Chest Pain 03/06/19 22:30 04/05/19 22:29 Polyethylene Glycol (Miralax) 17 gm DAILYPRN PRN ORAL Constipation 03/06/19 22:30 04/05/19 22:29 Promethazine HCl/ Codeine (Phenergan with Codeine) 5 ml Q4H PRN ORAL For Cough 03/06/19 22:45 04/05/19 22:44 Temazepam (Restoril) 15 mg HSPRN PRN ORAL Insomnia 03/06/19 22:30 03/13/19 22:29 Allergies: Coded Allergies: No Known Allergies (Unverified , 04/08/14) ROS Limited/Unobtainable: No Constitutional: Reports: no symptoms HEENT: Reports: no symptoms Cardiovascular: Reports: no symptoms Respiratory: Reports: shortness of breath Gastrointestinal/Abdominal: Reports: no symptoms Genitourinary: Reports: no symptoms Neurologic/Psychiatric: Reports: no symptoms Subjective 83 YO F admitted with shortness of breath. Now asthma exacerbation with bronchitis. Aslo UTI. Cover for Int Med-Dr Ann Objective Last Vital Signs Date Time Temp Pulse Resp B/P (MAP) Pulse Ox O2 Delivery O2 Flow Rate FiO2 03/08/19 12:00 98.7 53 16 131/53 (79) 98 03/08/19 11:00 Room Air 03/08/19 08:30 21 Laboratory Tests Test 03/07/19 21:55 Troponin I 0.009 ng/mL (0.000-0.056) Microbiology Date/Time Source Procedure Growth Status 03/06/19 18:20 Blood Blood Culture - Preliminary Resulted 03/06/19 18:10 Blood Blood Culture - Preliminary NO GROWTH AFTER 24 HOURS Resulted 03/06/19 18:30 Urine,Clean Catch Urine Culture - Final Escherichia Coli Complete Intake and Output 03/07/19 03/08/19 19:00 07:00 Intake Total 260 ml Output Total 500 ml Balance -240 ml Intake Oral 260 ml Output Urine Total 500 ml # Voids 3 3 # Bowel Movements 1 Objective PHYSICAL EXAMINATION: GENERAL: The patient is awake, responsive, and in no acute distress. HEAD AND NECK: Pupils are equal and reactive to light. Anicteric. NECK: Supple. No jugular venous distention. LUNGS: Good air entry. Expiratory wheezes. No rhonchi. HEART: S1, S2. Distant heart sounds. No murmur or gallops. ABDOMEN: Soft, nondistended, and nontender. Morbidly obese. EXTREMITIES: No cyanosis or clubbing. A +1 edema of bilateral lower extremity with hyperpigmentation and erythema on the bilateral ankle at the ankle area. RECTAL/GENITOURINARY: Refused and deferred. PSYCHIATRIC: Mood and affect is intact. NEUROLOGIC: Cranial nerves II through XII grossly intact. Motor is 5/5 in all extremities. Gait was not assessed. Assessment/Plan Assessment/Plan ASSESSMENT: 1. Shortness of breath and cough due to purulent bronchitis. 2. urinary tract infection=E. coli. 3. Acute asthma exacerbation. 4. Hypertension. 5. Morbid obesity. 6. Hypothyroidism. 7. Diabetes type 2. 8. History of gout. PLAN: 1. Admit the patient to telemetry. 2. We will follow up with Dr. Gray, Pulmonary Critical Care. 3. Code status is Full Code. 4. antibiotics=ceftriaxone 5. We will monitor laboratory closely as well as cultures 6. Nebulizer treatments. 7. Follow up with PT mobility study Sanjeev Stockton MD Mar 08, 2019 14:17
--- NOTE | 2019-03-08 14:44 | Cardiology Progress Note ---
Assessment/Plan Problem List: (1) UTI (urinary tract infection) (2) Acute asthma exacerbation (3) Hypertension (4) CHF exacerbation (5) CAD (coronary artery disease) Status: stable, progressing Status Narrative Pt hemodynamically stable. No angina or CHF symptoms. She has sinus galilea, to 40s on telemetry, at rest, not associated w/ symptoms Assessment/Plan Continue antibiotics for bronchitis, UTI. Decrease bystolic, given low HRs, and continue telemetry. Continue asa, ? statin Diuretics prn for pulm congestion Subjective ROS Limited/Unobtainable: No Subjective Cardiology - coverage for Dr. Almendarez Pt c/o cough, no sputum. No chest pain Objective Last 24 Hour Vital Signs Date Time Temp Pulse Resp B/P (MAP) Pulse Ox O2 Delivery O2 Flow Rate FiO2 03/08/19 12:00 98.7 53 16 131/53 (79) 98 03/08/19 11:00 Room Air 03/08/19 11:00 Room Air 03/08/19 08:30 64 18 98 Room Air 21 03/08/19 08:30 Room Air 03/08/19 08:30 Room Air 03/08/19 08:00 99.0 57 18 128/64 (85) 92 03/08/19 08:00 54 03/08/19 04:00 97.5 52 20 123/56 (78) 96 03/08/19 03:59 50 03/08/19 03:20 Room Air 03/08/19 03:20 Room Air 03/07/19 23:53 65 03/07/19 23:43 100.0 65 20 133/53 (79) 93 03/07/19 23:12 Room Air 03/07/19 23:10 78 18 96 Room Air 21 03/07/19 22:00 100.5 03/07/19 22:00 100.5 03/07/19 21:00 Room Air 03/07/19 20:00 101.5 81 24 142/69 (93) 91 03/07/19 19:56 80 03/07/19 19:19 Room Air 03/07/19 19:18 72 20 95 Room Air 21 03/07/19 19:18 75 20 95 Room Air 21 03/07/19 16:00 98.0 74 20 156/78 (104) 93 03/07/19 16:00 73 03/07/19 14:59 69 18 95 Room Air 21 03/07/19 14:59 67 18 94 Room Air 21 General Appearance: WD/WN, no apparent distress, alert, obese EENT: PERRL/EOMI Neck: supple, no JVD Rhythm: NSR Cardiovascular: normal rate, regular rhythm, no gallop/murmur Respiratory/Chest: rhonchi - bilaterally Abdomen: normal bowel sounds, non tender, soft Extremities: moderate edema, other - 2+ pedal, ankle edema bilat. R LE erythema Intake and Output 03/07/19 03/08/19 19:00 07:00 Intake Total 260 ml Output Total 500 ml Balance -240 ml Intake Oral 260 ml Output Urine Total 500 ml # Voids 3 3 # Bowel Movements 1 Laboratory Tests Test 03/07/19 21:55 Troponin I 0.009 ng/mL (0.000-0.056) Microbiology Date/Time Source Procedure Growth Status 03/06/19 18:20 Blood Blood Culture - Preliminary Resulted 03/06/19 18:10 Blood Blood Culture - Preliminary NO GROWTH AFTER 24 HOURS Resulted 03/06/19 18:30 Urine,Clean Catch Urine Culture - Final Escherichia Coli Complete Katlyn Moore MD Mar 08, 2019 14:44
[2019-03-08 16:00] VITALS: BP 130/62
[2019-03-08 20:00] VITALS: BP 127/55
[2019-03-08] MEDS ORDERED: Bystolic 2.5mg Tab ORAL SCH (21:00)
[2019-03-08 23:55] VITALS: BP 137/59
[2019-03-09 04:00] VITALS: BP 142/56
[2019-03-09] MEDS: NovoLOG Insulin Flexpen SUBQ SCH ×4 (06:11→20:51)
[2019-03-09 07:21] LABS: BASOPHILS % (AUTO) 0.5 % (0.0-2.0); EOSINOPHILS % (AUTO) 1.9 % (0.0-3.0); HEMATOCRIT 34.9 % (37.0-47.0); HEMOGLOBIN 11.2 G/DL (12.0-16.0); MEAN CORPUSCULAR VOLUME 88 FL (80-99); MONOCYTES % (AUTO) 7.2 % (1.0-10.0); NEUTROPHILS % (AUTO) 68.6 % (45.0-75.0); PLATELET COUNT 186 K/UL (150-450); RED BLOOD COUNT 3.98 M/UL (4.20-5.40); RED CELL DISTRIBUTION WIDTH 13.3 % (11.6-14.8); WHITE BLOOD COUNT 6.6 K/UL (4.8-10.8)
[2019-03-09 07:43] LABS: ANION GAP 5 mmol/L (5-15); BLOOD UREA NITROGEN 31 mg/dL (7-18); CARBON DIOXIDE 31 MMOL/L (21-32); CHLORIDE 108 MMOL/L (98-107); CREATININE 1.1 MG/DL (0.55-1.30); POTASSIUM 3.6 MMOL/L (3.5-5.1); SODIUM 144 MMOL/L (136-145)
[2019-03-09] MEDS ORDERED: Dextrose 50% 25ml Syringe IV PRN (07:45)
[2019-03-09 08:00] VITALS: BP 129/59
[2019-03-09] MEDS: DULoxetine 30mg cap ORAL SCH (08:59)
[2019-03-09] MEDS: Allopurinol 100mg Tab ORAL SCH (08:59)
[2019-03-09] MEDS: Aspirin Baby 81mg ORAL SCH (09:00)
[2019-03-09] MEDS: Heparin 5000 units/ml inj SUBQ SCH ×2 (09:01→20:52)
--- NOTE | 2019-03-09 10:16 | Pulmonology Progress Note ---
Assessment/Plan Assessment/Plan ASSESSMENT Acute asthma exacerbation Probably purulent bronchitis CHF Hypertension UTI with E coli Hypertension Diabetes mellitus Hypothyroidism CAD with hx of recent stent placement Gout Obesity PLAN OF CARE telemetry O2 titrate to keep pulse ox above 90% pulm toilet with bronchodilator prn antitussive PRN UCX + Ecoli dc Levaquin ( R), started ceftriaxone, avoid Bactrim given recent contrast nephropathy serial troponin x2- negative status post Lasix x1 Echo with pEF 55 and RVSP 23; moderate aortic regurgitation ; mild left LVH cardio on board , no evidence of CHF decompensation serial troponin negative, ECG no acute ischemic changes; pt ruled out for acute IA leg edema chronic -as per patient ( always has it) continue aspirin, beta-annamaria BP management with beta-annamaria -stable, mild galilea in high 50 , on tele SB, BB dose decreased as epr cardio, still in galilea high 50th, asymptomatic; tele - no block, no pauses lipid panel stable BS management with Starlix + SSI prn HgA1c -6.0 DVT prophylaxis supportive care case discussed and evaluated by supervising physician Subjective Allergies: Coded Allergies: No Known Allergies (Unverified , 04/08/14) Subjective denies chest pain, SOB while questioned about leg edema, stated that it's always there no fevers on RA, pulse ox stable SB on tele high 50th Objective Last 24 Hour Vital Signs Date Time Temp Pulse Resp B/P (MAP) Pulse Ox O2 Delivery O2 Flow Rate FiO2 03/09/19 08:12 Room Air 21 03/09/19 08:12 Room Air 21 03/09/19 08:00 97.9 58 22 129/59 (82) 92 03/09/19 04:00 98.2 57 16 142/56 (84) 93 03/09/19 04:00 55 03/09/19 03:30 Room Air 21 03/09/19 03:30 Room Air 21 03/08/19 23:55 98.2 57 17 137/59 (85) 93 03/08/19 23:53 98.2 03/08/19 23:46 55 03/08/19 23:45 Room Air 21 03/08/19 23:45 Room Air 21 03/08/19 21:00 Room Air 03/08/19 20:00 99.1 60 18 127/55 (79) 95 03/08/19 19:51 57 03/08/19 16:00 57 03/08/19 16:00 98.0 58 16 130/62 (84) 98 03/08/19 14:33 Room Air 03/08/19 14:33 Room Air 03/08/19 12:00 98.7 53 16 131/53 (79) 98 03/08/19 11:00 Room Air 03/08/19 11:00 Room Air Intake and Output 03/08/19 03/09/19 19:00 07:00 Output Total 600 ml 500 ml Balance -600 ml -500 ml Output Urine Total 600 ml 500 ml Objective General Appearance: no acute distress, awake, alert, forgetful Norwegian speaking female HEENT: normocephalic, atraumatic, anicteric, mucous membranes moist Respiratory/Chest: lungs clear - with moderate air exchange , no respiratory distress, no accessory muscle use Cardiovascular: normal rate, bradycardia - in 50 th Abdomen: normal bowel sounds, soft, non tender Extremities: pedal pulses normal, other - + 1 edema Neurologic/Psychiatric: abnormal gait, alert, responsive Musculoskeletal: atrophy - BLE Microbiology Date/Time Source Procedure Growth Status 03/06/19 18:20 Blood Blood Culture - Preliminary Staphylococcus Sp Coag Neg Resulted 03/06/19 18:10 Blood Blood Culture - Preliminary NO GROWTH AFTER 48 HOURS Resulted 03/06/19 18:30 Urine,Clean Catch Urine Culture - Final Escherichia Coli Complete Laboratory Tests 03/09/19 01:50: Troponin I 0.000 03/09/19 06:00: White Blood Count 6.6, Red Blood Count 3.98L, Hemoglobin 11.2L, Hematocrit 34.9L , Mean Corpuscular Volume 88, Mean Corpuscular Hemoglobin 28.2, Mean Corpuscular Hemoglobin Concent 32.1, Red Cell Distribution Width 13.3, Platelet Count 186, Mean Platelet Volume 7.1, Neutrophils (%) (Auto) 68.6, Lymphocytes (% ) (Auto) 22.0, Monocytes (%) (Auto) 7.2, Eosinophils (%) (Auto) 1.9, Basophils ( %) (Auto) 0.5, Sodium Level 144, Potassium Level 3.6, Chloride Level 108H, Carbon Dioxide Level 31, Anion Gap 5, Blood Urea Nitrogen 31H, Creatinine 1.1, Estimat Glomerular Filtration Rate , Glucose Level 89, Hemoglobin A1c 6.0, Calcium Level 9.0 Current Medications Medications (Trade) Dose Ordered Sig/Gino Route PRN Reason Start Time Stop Time Status Last Admin Dose Admin Acetaminophen (Tylenol) 650 mg Q4H PRN ORAL FEVER 03/06/19 22:30 04/05/19 22:29 03/08/19 20:50 Albuterol/ Ipratropium (Albuterol/ Ipratropium) 3 ml EVERY 4 HOURS PRN HHN Shortness of Breath 03/06/19 22:30 03/11/19 22:29 Allopurinol (Zyloprim) 100 mg DAILY ORAL 03/07/19 09:00 04/06/19 08:59 03/09/19 08:59 Aspirin (ASA) 162 mg DAILY ORAL 03/07/19 09:00 04/06/19 08:59 03/09/19 09:00 Ceftriaxone Sodium 1 gm/ Dextrose 55 ml @ 110 mls/hr DAILY IVPB 03/08/19 12:00 03/15/19 11:59 03/08/19 12:26 Dextrose (Dextrose 50%) 25 ml Q30M PRN IV Hypoglycemia 03/09/19 07:45 04/08/19 07:37 Dextrose (Dextrose 50%) 50 ml Q30M PRN IV hypoglycemia 03/09/19 07:45 04/08/19 07:44 Duloxetine HCl (Cymbalta) 30 mg DAILY ORAL 03/07/19 09:00 04/06/19 08:59 03/09/19 08:59 Enalaprilat (Vasotec) 2.5 mg EVERY 6 HOURS PRN IV sbp more than 160 03/06/19 22:30 04/05/19 22:29 03/07/19 04:23 Gabapentin (Neurontin) 300 mg BEDTIME ORAL 03/07/19 21:00 04/06/19 20:59 03/08/19 20:50 Heparin Sodium (Porcine) (Heparin 5000 units/ml) 5,000 units EVERY 12 HOURS SUBQ 03/07/19 09:00 04/06/19 08:59 03/09/19 09:01 Insulin Aspart (NovoLOG) BEFORE MEALS AND HS SUBQ 03/07/19 06:30 04/06/19 06:29 03/08/19 12:25 Levothyroxine Sodium (Synthroid) 100 mcg ACBREAKFAST ORAL 03/07/19 06:30 04/06/19 06:29 03/09/19 06:09 Nateglinide (Starlix) 120 mg BID ORAL 03/07/19 09:00 04/06/19 08:59 03/09/19 08:59 Nebivolol (Bystolic) 2.5 mg BEDTIME ORAL 03/08/19 21:00 04/07/19 20:59 03/08/19 20:50 Nitroglycerin (Ntg) 0.4 mg Q5M PRN SL Prn Chest Pain 03/06/19 22:30 04/05/19 22:29 Polyethylene Glycol (Miralax) 17 gm DAILYPRN PRN ORAL Constipation 03/06/19 22:30 04/05/19 22:29 Promethazine HCl/ Codeine (Phenergan with Codeine) 5 ml Q4H PRN ORAL For Cough 03/06/19 22:45 04/05/19 22:44 Temazepam (Restoril) 15 mg HSPRN PRN ORAL Insomnia 03/06/19 22:30 03/13/19 22:29 Hetal Samuels OPERATIONS RESEARCH ANALYST Mar 09, 2019 10:16
[2019-03-09] MEDS: cefTRIAXone 1 GM in D5W 55 ML IVPB SCH (10:40)
[2019-03-09 11:57] VITALS: BP 133/68
[2019-03-09] MEDS ORDERED: PLAVIX75 MG ORAL (13:26)
[2019-03-09] MEDS ORDERED: FERROUS SULFAT325 MG ORAL (13:26)
[2019-03-09] MEDS ORDERED: ZYPREXA2.5 MG ORAL (13:26)
[2019-03-09] MEDS ORDERED: NAMENDA10 MG ORAL (13:26)
[2019-03-09] MEDS ORDERED: LEXAPRO20 MG ORAL (13:26)
--- NOTE | 2019-03-09 13:52 | Cardiology Report ---
APPROVED REPORT EKG Measurement Heart [id number] ME [id number] [id number] Sinus bradycardia Right bundle branch block Borderline ECG
--- NOTE | 2019-03-09 14:18 | Internal Med Progress Note ---
Subjective Date of Service: Mar 09, 2019 Physician Name Sanjeev Stockton Attending Physician Rob Ann MD Current Medications Medications (Trade) Dose Ordered Sig/Gino Route PRN Reason Start Time Stop Time Status Last Admin Dose Admin Acetaminophen (Tylenol) 650 mg Q4H PRN ORAL FEVER 03/06/19 22:30 04/05/19 22:29 03/08/19 20:50 Albuterol/ Ipratropium (Albuterol/ Ipratropium) 3 ml EVERY 4 HOURS PRN HHN Shortness of Breath 03/06/19 22:30 03/11/19 22:29 Allopurinol (Zyloprim) 100 mg DAILY ORAL 03/07/19 09:00 04/06/19 08:59 03/09/19 08:59 Aspirin (ASA) 162 mg DAILY ORAL 03/07/19 09:00 04/06/19 08:59 03/09/19 09:00 Ceftriaxone Sodium 1 gm/ Dextrose 55 ml @ 110 mls/hr DAILY IVPB 03/08/19 12:00 03/15/19 11:59 03/09/19 10:40 Dextrose (Dextrose 50%) 25 ml Q30M PRN IV Hypoglycemia 03/09/19 07:45 04/08/19 07:37 Dextrose (Dextrose 50%) 50 ml Q30M PRN IV hypoglycemia 03/09/19 07:45 04/08/19 07:44 Duloxetine HCl (Cymbalta) 30 mg DAILY ORAL 03/07/19 09:00 04/06/19 08:59 03/09/19 08:59 Enalaprilat (Vasotec) 2.5 mg EVERY 6 HOURS PRN IV sbp more than 160 03/06/19 22:30 04/05/19 22:29 03/07/19 04:23 Gabapentin (Neurontin) 300 mg BEDTIME ORAL 03/07/19 21:00 04/06/19 20:59 03/08/19 20:50 Heparin Sodium (Porcine) (Heparin 5000 units/ml) 5,000 units EVERY 12 HOURS SUBQ 03/07/19 09:00 04/06/19 08:59 03/09/19 09:01 Insulin Aspart (NovoLOG) BEFORE MEALS AND HS SUBQ 03/07/19 06:30 04/06/19 06:29 03/08/19 12:25 Levothyroxine Sodium (Synthroid) 100 mcg ACBREAKFAST ORAL 03/07/19 06:30 04/06/19 06:29 03/09/19 06:09 Nateglinide (Starlix) 120 mg BID ORAL 03/07/19 09:00 04/06/19 08:59 03/09/19 08:59 Nebivolol (Bystolic) 2.5 mg BEDTIME ORAL 03/08/19 21:00 04/07/19 20:59 03/08/19 20:50 Nitroglycerin (Ntg) 0.4 mg Q5M PRN SL Prn Chest Pain 03/06/19 22:30 04/05/19 22:29 Polyethylene Glycol (Miralax) 17 gm DAILYPRN PRN ORAL Constipation 03/06/19 22:30 04/05/19 22:29 Promethazine HCl/ Codeine (Phenergan with Codeine) 5 ml Q4H PRN ORAL For Cough 03/06/19 22:45 04/05/19 22:44 Temazepam (Restoril) 15 mg HSPRN PRN ORAL Insomnia 03/06/19 22:30 03/13/19 22:29 Allergies: Coded Allergies: No Known Allergies (Unverified , 04/08/14) ROS Limited/Unobtainable: No Constitutional: Reports: no symptoms HEENT: Reports: no symptoms Cardiovascular: Reports: no symptoms Respiratory: Reports: no symptoms Gastrointestinal/Abdominal: Reports: no symptoms Genitourinary: Reports: no symptoms Neurologic/Psychiatric: Reports: no symptoms Subjective 83 YO F admitted with shortness of breath. Now asthma exacerbation with bronchitis. Aslo UTI. Cover for Int Med-Dr Ann Objective Last Vital Signs Date Time Temp Pulse Resp B/P (MAP) Pulse Ox O2 Delivery O2 Flow Rate FiO2 03/09/19 11:57 97.8 57 20 133/68 (89) 94 03/09/19 08:12 Room Air 21 Laboratory Tests Test 03/09/19 01:50 03/09/19 06:00 Troponin I 0.000 ng/mL (0.000-0.056) White Blood Count 6.6 K/UL (4.8-10.8) Red Blood Count 3.98 M/UL (4.20-5.40) L Hemoglobin 11.2 G/DL (12.0-16.0) L Hematocrit 34.9 % (37.0-47.0) L Mean Corpuscular Volume 88 FL (80-99) Mean Corpuscular Hemoglobin 28.2 PG (27.0-31.0) Mean Corpuscular Hemoglobin Concent 32.1 G/DL (32.0-36.0) Red Cell Distribution Width 13.3 % (11.6-14.8) Platelet Count 186 K/UL (150-450) Mean Platelet Volume 7.1 FL (6.5-10.1) Neutrophils (%) (Auto) 68.6 % (45.0-75.0) Lymphocytes (%) (Auto) 22.0 % (20.0-45.0) Monocytes (%) (Auto) 7.2 % (1.0-10.0) Eosinophils (%) (Auto) 1.9 % (0.0-3.0) Basophils (%) (Auto) 0.5 % (0.0-2.0) Sodium Level 144 MMOL/L (136-145) Potassium Level 3.6 MMOL/L (3.5-5.1) Chloride Level 108 MMOL/L (98-107) H Carbon Dioxide Level 31 MMOL/L (21-32) Anion Gap 5 mmol/L (5-15) Blood Urea Nitrogen 31 mg/dL (7-18) H Creatinine 1.1 MG/DL (0.55-1.30) Estimat Glomerular Filtration Rate mL/min (>60) Glucose Level 89 MG/DL (74-106) Hemoglobin A1c 6.0 % (4.3-6.0) Calcium Level 9.0 MG/DL (8.5-10.1) Microbiology Date/Time Source Procedure Growth Status 03/06/19 18:20 Blood Blood Culture - Preliminary Staphylococcus Sp Coag Neg Resulted 03/06/19 18:10 Blood Blood Culture - Preliminary NO GROWTH AFTER 48 HOURS Resulted 03/06/19 18:30 Urine,Clean Catch Urine Culture - Final Escherichia Coli Complete Intake and Output 03/08/19 03/09/19 19:00 07:00 Output Total 600 ml 500 ml Balance -600 ml -500 ml Output Urine Total 600 ml 500 ml Objective PHYSICAL EXAMINATION: GENERAL: The patient is awake, responsive, and in no acute distress. HEAD AND NECK: Pupils are equal and reactive to light. Anicteric. NECK: Supple. No jugular venous distention. LUNGS: Good air entry. Expiratory wheezes. No rhonchi. HEART: S1, S2. Distant heart sounds. No murmur or gallops. ABDOMEN: Soft, nondistended, and nontender. Morbidly obese. EXTREMITIES: No cyanosis or clubbing. A +1 edema of bilateral lower extremity with hyperpigmentation and erythema on the bilateral ankle at the ankle area. RECTAL/GENITOURINARY: Refused and deferred. PSYCHIATRIC: Mood and affect is intact. NEUROLOGIC: Cranial nerves II through XII grossly intact. Motor is 5/5 in all extremities. Gait was not assessed. Assessment/Plan Assessment/Plan ASSESSMENT: 1. Shortness of breath and cough due to purulent bronchitis. 2. urinary tract infection=E. coli. 3. Acute asthma exacerbation. 4. Hypertension. 5. Morbid obesity. 6. Hypothyroidism. 7. Diabetes type 2. 8. History of gout. 9. Acute congestive heart failure (LVEF=55%) PLAN: 1. Admit the patient to telemetry. 2. We will follow up with Dr. Gray, Pulmonary Critical Care. 3. Code status is Full Code. 4. antibiotics=ceftriaxone 5. We will monitor laboratory closely as well as cultures 6. Nebulizer treatments. 7. Follow up with PT mobility study 8. Cardiology=Sanjeev Maria MD Mar 09, 2019 14:18
--- NOTE | 2019-03-09 15:48 | Coder Physician Query ---
Clarification is required for compliance, coding accuracy, and to reflect severity of illness for this patient Dear Dr. Stockton Date: 03/09/2019 Commercial Green Building Designer/CDS Name: Graciela Newsome "Acute CHF" is documented in progress notes. On admission BNP: 1793 EF: 55% Rx: IV Furosemide (40 mg) Please clarify the type of CHF: [ ] Systolic [ X ] Diastolic [ ] Systolic & Diastolic (Combined) [ ] Other: Present on Admission: [ ] Yes [ ] No [ ] Clinically Undetermined Physician signature Date Please also document in your Progress Notes and/or Discharge Summary and indicate if the condition was present on admission. GIOVANNID
[2019-03-09 16:00] VITALS: BP 161/58
[2019-03-09] MEDS ORDERED: NS 275ml ONE (16:01)
[2019-03-09] MEDS ORDERED: Tubing IV Secondary IV ONE (16:01)
[2019-03-09 16:30] VITALS: BP 157/67
--- NOTE | 2019-03-09 18:00 | Cardiology Progress Note ---
Assessment/Plan Problem List: (1) UTI (urinary tract infection) (2) Acute asthma exacerbation (3) Hypertension (4) CHF exacerbation (5) CAD (coronary artery disease) Status: stable, unchanged Status Narrative Pt hemodynamically stable. Hypertensive w/ decrease in nebivolol ( due to bradycardia) No angina or CHF symptoms. remains w/ cough/ congestion, bronchitis, ? aspiration Assessment/Plan Continue antibiotics for bronchitis, UTI. ? swallowing evaluation Will stop bystolic, as sinus rates remain low. Start amlodipine for HTN Continue asa Diuretics prn for pulm congestion Subjective ROS Limited/Unobtainable: Yes Subjective Cardiology - coverage for Dr. Almendarez Pt c/o cough, no sputum. No chest pain. Limited hx due to language barrier Objective Last 24 Hour Vital Signs Date Time Temp Pulse Resp B/P (MAP) Pulse Ox O2 Delivery O2 Flow Rate FiO2 03/09/19 16:00 97.0 61 20 161/58 (92) 92 03/09/19 16:00 59 03/09/19 12:00 54 03/09/19 11:57 97.8 57 20 133/68 (89) 94 03/09/19 09:00 Room Air 03/09/19 08:12 Room Air 21 03/09/19 08:12 Room Air 21 03/09/19 08:00 97.9 58 22 129/59 (82) 92 03/09/19 08:00 56 03/09/19 04:00 98.2 57 16 142/56 (84) 93 03/09/19 04:00 55 03/09/19 03:30 Room Air 21 03/09/19 03:30 Room Air 21 03/08/19 23:55 98.2 57 17 137/59 (85) 93 03/08/19 23:53 98.2 03/08/19 23:46 55 03/08/19 23:45 Room Air 21 03/08/19 23:45 Room Air 21 03/08/19 21:00 Room Air 03/08/19 20:00 99.1 60 18 127/55 (79) 95 03/08/19 19:51 57 General Appearance: WD/WN, alert, obese EENT: PERRL/EOMI Neck: supple, no JVD Rhythm: NSR Cardiovascular: normal rate, regular rhythm, no gallop/murmur Respiratory/Chest: other - bilat rhonchi and expir wheezes. Fair air movement Abdomen: non tender, soft Extremities: no swelling Intake and Output 03/08/19 03/09/19 19:00 07:00 Output Total 600 ml 500 ml Balance -600 ml -500 ml Output Urine Total 600 ml 500 ml Laboratory Tests Test 03/09/19 01:50 03/09/19 06:00 Troponin I 0.000 ng/mL (0.000-0.056) White Blood Count 6.6 K/UL (4.8-10.8) Red Blood Count 3.98 M/UL (4.20-5.40) L Hemoglobin 11.2 G/DL (12.0-16.0) L Hematocrit 34.9 % (37.0-47.0) L Mean Corpuscular Volume 88 FL (80-99) Mean Corpuscular Hemoglobin 28.2 PG (27.0-31.0) Mean Corpuscular Hemoglobin Concent 32.1 G/DL (32.0-36.0) Red Cell Distribution Width 13.3 % (11.6-14.8) Platelet Count 186 K/UL (150-450) Mean Platelet Volume 7.1 FL (6.5-10.1) Neutrophils (%) (Auto) 68.6 % (45.0-75.0) Lymphocytes (%) (Auto) 22.0 % (20.0-45.0) Monocytes (%) (Auto) 7.2 % (1.0-10.0) Eosinophils (%) (Auto) 1.9 % (0.0-3.0) Basophils (%) (Auto) 0.5 % (0.0-2.0) Sodium Level 144 MMOL/L (136-145) Potassium Level 3.6 MMOL/L (3.5-5.1) Chloride Level 108 MMOL/L (98-107) H Carbon Dioxide Level 31 MMOL/L (21-32) Anion Gap 5 mmol/L (5-15) Blood Urea Nitrogen 31 mg/dL (7-18) H Creatinine 1.1 MG/DL (0.55-1.30) Estimat Glomerular Filtration Rate mL/min (>60) Glucose Level 89 MG/DL (74-106) Hemoglobin A1c 6.0 % (4.3-6.0) Calcium Level 9.0 MG/DL (8.5-10.1) Microbiology Date/Time Source Procedure Growth Status 03/06/19 18:20 Blood Blood Culture - Preliminary Staphylococcus Sp Coag Neg Resulted 03/06/19 18:10 Blood Blood Culture - Preliminary NO GROWTH AFTER 48 HOURS Resulted 03/06/19 18:30 Urine,Clean Catch Urine Culture - Final Escherichia Coli Complete Katlyn Moore MD Mar 09, 2019 18:00
[2019-03-09 20:00] VITALS: BP 182/76
[2019-03-09] MEDS: Enalaprilat 2.5mg/2ml Inj IV PRN (20:49)
[2019-03-10] VITALS: BP 171/80
[2019-03-10 04:00] VITALS: BP 162/74
[2019-03-10] MEDS: NovoLOG Insulin Flexpen SUBQ SCH ×4 (05:56→21:00)
[2019-03-10 07:14] LABS: BASOPHILS % (AUTO) 0.6 % (0.0-2.0); EOSINOPHILS % (AUTO) 2.1 % (0.0-3.0); HEMATOCRIT 34.5 % (37.0-47.0); HEMOGLOBIN 11.1 G/DL (12.0-16.0); LYMPHOCYTES % (AUTO) 23.7 % (20.0-45.0); MEAN CORPUSCULAR VOLUME 87 FL (80-99); MONOCYTES % (AUTO) 5.9 % (1.0-10.0); NEUTROPHILS % (AUTO) 67.7 % (45.0-75.0); PLATELET COUNT 213 K/UL (150-450); RED BLOOD COUNT 3.97 M/UL (4.20-5.40); RED CELL DISTRIBUTION WIDTH 13.3 % (11.6-14.8); WHITE BLOOD COUNT 7.2 K/UL (4.8-10.8)
[2019-03-10 07:31] LABS: ANION GAP 6 mmol/L (5-15); BLOOD UREA NITROGEN 33 mg/dL (7-18); CALCIUM 9.2 MG/DL (8.5-10.1); CARBON DIOXIDE 29 MMOL/L (21-32); CHLORIDE 110 MMOL/L (98-107); CREATININE 0.9 MG/DL (0.55-1.30); POTASSIUM 3.9 MMOL/L (3.5-5.1); SODIUM 145 MMOL/L (136-145)
[2019-03-10 08:00] VITALS: BP 146/75
--- NOTE | 2019-03-10 09:56 | Cardiology Report ---
APPROVED REPORT EXAM: Two-dimensional and M-mode echocardiogram with Doppler and color Doppler. INDICATION Left Ventricular Function M-Mode DIMENSIONS IVSd1.3 (0.7-1.1cm)Left Atrium (MM)2.8 (1.6-4.0cm) LVDd4.8 (3.5-5.6cm)Aortic Root2.5 (2.0-3.7cm) PWd0.8 (0.7-1.1cm)Aortic Cusp Exc.1.9 (1.5-2.0cm) LVDs3.1 (2.5-4.0cm) PWs1.4 cm Normal left ventricular chamber size, systolic function and wall motion. Left ventricular ejection fraction estimated to be 55 %. Mild left ventricular hypertrophy. Anterior Echo-free space, may be due to pericardial fat or effusion. All other cardiac chamber sizes are within normal limits. Focal aortic valve sclerosis with adequate cusp excursion. Thickened mitral valve leaflets with normal excursion. Mitral annulus and aortic root calcification. Normal pulmonic valve structure. Normal tricuspid valve structure. IVC is normal in size with physiological collapse. A color flow and spectral Doppler study was performed and revealed: Mild aortic regurgitation. Trace mitral regurgitation. Mitral diastolic velocities suggest mild left ventricular diastolic dysfunction (Grade I). tricuspid regurgitation. Tricuspid systolic velocities suggests peak right ventricular systolic pressure of 13 mmHg. Trace pulmonic regurgitation present.
[2019-03-10] MEDS: Allopurinol 100mg Tab ORAL SCH (10:01)
[2019-03-10] MEDS: DULoxetine 30mg cap ORAL SCH (10:01)
[2019-03-10] MEDS: Aspirin Baby 81mg ORAL SCH (10:01)
[2019-03-10] MEDS: Heparin 5000 units/ml inj SUBQ SCH ×2 (10:02→21:14)
[2019-03-10] MEDS: cefTRIAXone 1 GM in D5W 55 ML IVPB SCH (10:04)
--- NOTE | 2019-03-10 11:10 | Diagnostic Imaging Report ---
Indication: Shortness of Technique: One view of the chest Comparison: 03/07/2019 Findings: Large retrocardiac hiatal hernia again demonstrated. There is suggestion of increased interstitial congestion. The heart is borderline enlarged. Impression: Mild interstitial congestion, new since prior study 03/07/2019
[2019-03-10 12:00] VITALS: BP 128/54
--- NOTE | 2019-03-10 12:11 | Pulmonology Progress Note ---
Assessment/Plan Problems: (1) Purulent bronchitis (2) Acute asthma exacerbation (3) Hypertension (4) History of asthma Assessment/Plan echo reviewed, EF of 50% BC positive , probably contaminated Urine cultures reviewed swallow study today dc planning for am continue abx ID evaluation. Subjective ROS Limited/Unobtainable: No Interval Events: no new complains, sinus at 60 Allergies: Coded Allergies: No Known Allergies (Unverified , 04/08/14) Objective Last 24 Hour Vital Signs Date Time Temp Pulse Resp B/P (MAP) Pulse Ox O2 Delivery O2 Flow Rate FiO2 03/10/19 10:01 68 146/75 03/10/19 09:00 Room Air 03/10/19 08:00 69 03/10/19 08:00 97.5 68 22 146/75 (98) 95 03/10/19 04:00 61 03/10/19 04:00 98.1 61 18 162/74 (103) 95 03/10/19 00:00 98.1 63 18 171/80 (110) 95 03/10/19 00:00 58 03/09/19 21:00 Room Air 03/09/19 20:49 182/76 03/09/19 20:00 98.1 64 18 182/76 (111) 92 03/09/19 20:00 63 03/09/19 18:34 63 157/67 03/09/19 16:30 63 157/67 (97) 03/09/19 16:00 97.0 61 20 161/58 (92) 92 03/09/19 16:00 59 Intake and Output 03/09/19 03/10/19 19:00 07:00 Intake Total 110 ml Output Total 300 ml 800 ml Balance -190 ml -800 ml IV Total 110 ml Output Urine Total 300 ml 800 ml General Appearance: WD/WN HEENT: normocephalic, atraumatic Respiratory/Chest: chest wall non-tender, lungs clear Cardiovascular: normal peripheral pulses, regular rhythm Abdomen: normal bowel sounds, soft, non tender Extremities: no cyanosis Skin: no lesions Neurologic/Psychiatric: fare register repairer II-XII grossly normal Microbiology Date/Time Source Procedure Growth Status 03/07/19 21:25 Blood Blood Culture - Preliminary NO GROWTH AFTER 24 HOURS Resulted 03/07/19 21:10 Blood Blood Culture - Preliminary NO GROWTH AFTER 24 HOURS Resulted Laboratory Tests 03/10/19 06:15: White Blood Count 7.2, Red Blood Count 3.97L, Hemoglobin 11.1L, Hematocrit 34.5L , Mean Corpuscular Volume 87, Mean Corpuscular Hemoglobin 27.9, Mean Corpuscular Hemoglobin Concent 32.1, Red Cell Distribution Width 13.3, Platelet Count 213, Mean Platelet Volume 7.1, Neutrophils (%) (Auto) 67.7, Lymphocytes (% ) (Auto) 23.7, Monocytes (%) (Auto) 5.9, Eosinophils (%) (Auto) 2.1, Basophils ( %) (Auto) 0.6, Sodium Level 145, Potassium Level 3.9, Chloride Level 110H, Carbon Dioxide Level 29, Anion Gap 6, Blood Urea Nitrogen 33H, Creatinine 0.9, Estimat Glomerular Filtration Rate , Glucose Level 103, Calcium Level 9.2, Pro-B -Type Natriuretic Peptide 1383H Current Medications Medications (Trade) Dose Ordered Sig/Gino Route PRN Reason Start Time Stop Time Status Last Admin Dose Admin Acetaminophen (Tylenol) 650 mg Q4H PRN ORAL FEVER 03/06/19 22:30 04/05/19 22:29 03/08/19 20:50 Albuterol/ Ipratropium (Albuterol/ Ipratropium) 3 ml EVERY 4 HOURS PRN HHN Shortness of Breath 03/06/19 22:30 03/11/19 22:29 Allopurinol (Zyloprim) 100 mg DAILY ORAL 03/07/19 09:00 04/06/19 08:59 03/10/19 10:01 Amlodipine Besylate (Norvasc) 5 mg DAILY ORAL 03/10/19 09:00 04/09/19 08:59 03/10/19 10:01 Aspirin (ASA) 162 mg DAILY ORAL 03/07/19 09:00 04/06/19 08:59 03/10/19 10:01 Ceftriaxone Sodium 1 gm/ Dextrose 55 ml @ 110 mls/hr DAILY IVPB 03/08/19 12:00 03/15/19 11:59 03/10/19 10:04 Dextrose (Dextrose 50%) 25 ml Q30M PRN IV Hypoglycemia 03/09/19 07:45 04/08/19 07:37 Dextrose (Dextrose 50%) 50 ml Q30M PRN IV hypoglycemia 03/09/19 07:45 04/08/19 07:44 Duloxetine HCl (Cymbalta) 30 mg DAILY ORAL 03/07/19 09:00 04/06/19 08:59 03/10/19 10:01 Enalaprilat (Vasotec) 2.5 mg EVERY 6 HOURS PRN IV sbp more than 160 03/06/19 22:30 04/05/19 22:29 03/09/19 20:49 Gabapentin (Neurontin) 300 mg BEDTIME ORAL 03/07/19 21:00 04/06/19 20:59 03/09/19 20:49 Heparin Sodium (Porcine) (Heparin 5000 units/ml) 5,000 units EVERY 12 HOURS SUBQ 03/07/19 09:00 04/06/19 08:59 03/10/19 10:02 Insulin Aspart (NovoLOG) BEFORE MEALS AND HS SUBQ 03/07/19 06:30 04/06/19 06:29 03/10/19 11:54 Levothyroxine Sodium (Synthroid) 100 mcg ACBREAKFAST ORAL 03/07/19 06:30 04/06/19 06:29 03/10/19 05:56 Nateglinide (Starlix) 120 mg BID ORAL 03/07/19 09:00 04/06/19 08:59 03/10/19 10:01 Nitroglycerin (Ntg) 0.4 mg Q5M PRN SL Prn Chest Pain 03/06/19 22:30 04/05/19 22:29 Polyethylene Glycol (Miralax) 17 gm DAILYPRN PRN ORAL Constipation 03/06/19 22:30 04/05/19 22:29 Promethazine HCl/ Codeine (Phenergan with Codeine) 5 ml Q4H PRN ORAL For Cough 03/06/19 22:45 04/05/19 22:44 Temazepam (Restoril) 15 mg HSPRN PRN ORAL Insomnia 03/06/19 22:30 03/13/19 22:29 Aurora Gray MD Mar 10, 2019 12:11
[2019-03-10 16:00] VITALS: BP 156/78
--- NOTE | 2019-03-10 18:44 | Internal Med Progress Note ---
Subjective Date of Service: Mar 10, 2019 Physician Name Sanjeev Stockton Attending Physician Rob Ann MD Current Medications Medications (Trade) Dose Ordered Sig/Gino Route PRN Reason Start Time Stop Time Status Last Admin Dose Admin Acetaminophen (Tylenol) 650 mg Q4H PRN ORAL FEVER 03/06/19 22:30 04/05/19 22:29 03/08/19 20:50 Albuterol/ Ipratropium (Albuterol/ Ipratropium) 3 ml EVERY 4 HOURS PRN HHN Shortness of Breath 03/06/19 22:30 03/11/19 22:29 Allopurinol (Zyloprim) 100 mg DAILY ORAL 03/07/19 09:00 04/06/19 08:59 03/10/19 10:01 Amlodipine Besylate (Norvasc) 5 mg DAILY ORAL 03/10/19 09:00 04/09/19 08:59 03/10/19 10:01 Aspirin (ASA) 162 mg DAILY ORAL 03/07/19 09:00 04/06/19 08:59 03/10/19 10:01 Ceftriaxone Sodium 1 gm/ Dextrose 55 ml @ 110 mls/hr DAILY IVPB 03/08/19 12:00 03/15/19 11:59 03/10/19 10:04 Dextrose (Dextrose 50%) 25 ml Q30M PRN IV Hypoglycemia 03/09/19 07:45 04/08/19 07:37 Dextrose (Dextrose 50%) 50 ml Q30M PRN IV hypoglycemia 03/09/19 07:45 04/08/19 07:44 Duloxetine HCl (Cymbalta) 30 mg DAILY ORAL 03/07/19 09:00 04/06/19 08:59 03/10/19 10:01 Enalaprilat (Vasotec) 2.5 mg EVERY 6 HOURS PRN IV sbp more than 160 03/06/19 22:30 04/05/19 22:29 03/09/19 20:49 Gabapentin (Neurontin) 300 mg BEDTIME ORAL 03/07/19 21:00 04/06/19 20:59 03/09/19 20:49 Heparin Sodium (Porcine) (Heparin 5000 units/ml) 5,000 units EVERY 12 HOURS SUBQ 03/07/19 09:00 04/06/19 08:59 03/10/19 10:02 Insulin Aspart (NovoLOG) BEFORE MEALS AND HS SUBQ 03/07/19 06:30 04/06/19 06:29 03/10/19 17:43 Levothyroxine Sodium (Synthroid) 100 mcg ACBREAKFAST ORAL 03/07/19 06:30 04/06/19 06:29 03/10/19 05:56 Nateglinide (Starlix) 120 mg BID ORAL 03/07/19 09:00 04/06/19 08:59 03/10/19 18:05 Nitroglycerin (Ntg) 0.4 mg Q5M PRN SL Prn Chest Pain 03/06/19 22:30 04/05/19 22:29 Polyethylene Glycol (Miralax) 17 gm DAILYPRN PRN ORAL Constipation 03/06/19 22:30 04/05/19 22:29 Promethazine HCl/ Codeine (Phenergan with Codeine) 5 ml Q4H PRN ORAL For Cough 03/06/19 22:45 04/05/19 22:44 Temazepam (Restoril) 15 mg HSPRN PRN ORAL Insomnia 03/06/19 22:30 03/13/19 22:29 Allergies: Coded Allergies: No Known Allergies (Unverified , 04/08/14) ROS Limited/Unobtainable: No Constitutional: Reports: no symptoms HEENT: Reports: no symptoms Cardiovascular: Reports: no symptoms Respiratory: Reports: no symptoms Gastrointestinal/Abdominal: Reports: no symptoms Genitourinary: Reports: no symptoms Neurologic/Psychiatric: Reports: no symptoms Subjective 83 YO F admitted with shortness of breath. Now asthma exacerbation with bronchitis. Aslo UTI. Cover for Int Med-Dr Ann Objective Last Vital Signs Date Time Temp Pulse Resp B/P (MAP) Pulse Ox O2 Delivery O2 Flow Rate FiO2 03/10/19 16:00 65 03/10/19 16:00 97.5 22 156/78 (104) 94 03/10/19 09:00 Room Air 03/09/19 08:12 21 Laboratory Tests Test 03/10/19 06:15 White Blood Count 7.2 K/UL (4.8-10.8) Red Blood Count 3.97 M/UL (4.20-5.40) L Hemoglobin 11.1 G/DL (12.0-16.0) L Hematocrit 34.5 % (37.0-47.0) L Mean Corpuscular Volume 87 FL (80-99) Mean Corpuscular Hemoglobin 27.9 PG (27.0-31.0) Mean Corpuscular Hemoglobin Concent 32.1 G/DL (32.0-36.0) Red Cell Distribution Width 13.3 % (11.6-14.8) Platelet Count 213 K/UL (150-450) Mean Platelet Volume 7.1 FL (6.5-10.1) Neutrophils (%) (Auto) 67.7 % (45.0-75.0) Lymphocytes (%) (Auto) 23.7 % (20.0-45.0) Monocytes (%) (Auto) 5.9 % (1.0-10.0) Eosinophils (%) (Auto) 2.1 % (0.0-3.0) Basophils (%) (Auto) 0.6 % (0.0-2.0) Sodium Level 145 MMOL/L (136-145) Potassium Level 3.9 MMOL/L (3.5-5.1) Chloride Level 110 MMOL/L (98-107) H Carbon Dioxide Level 29 MMOL/L (21-32) Anion Gap 6 mmol/L (5-15) Blood Urea Nitrogen 33 mg/dL (7-18) H Creatinine 0.9 MG/DL (0.55-1.30) Estimat Glomerular Filtration Rate mL/min (>60) Glucose Level 103 MG/DL (74-106) Calcium Level 9.2 MG/DL (8.5-10.1) Pro-B-Type Natriuretic Peptide 1383 pg/mL (0-125) H Microbiology Date/Time Source Procedure Growth Status 03/07/19 21:25 Blood Blood Culture - Preliminary NO GROWTH AFTER 24 HOURS Resulted 03/07/19 21:10 Blood Blood Culture - Preliminary NO GROWTH AFTER 24 HOURS Resulted Intake and Output 03/09/19 03/10/19 18:59 06:59 Intake Total 110 ml Output Total 300 ml 800 ml Balance -190 ml -800 ml IV Total 110 ml Output Urine Total 300 ml 800 ml Objective PHYSICAL EXAMINATION: GENERAL: The patient is awake, responsive, and in no acute distress. HEAD AND NECK: Pupils are equal and reactive to light. Anicteric. NECK: Supple. No jugular venous distention. LUNGS: Good air entry. Expiratory wheezes. No rhonchi. HEART: S1, S2. Distant heart sounds. No murmur or gallops. ABDOMEN: Soft, nondistended, and nontender. Morbidly obese. EXTREMITIES: No cyanosis or clubbing. A +1 edema of bilateral lower extremity with hyperpigmentation and erythema on the bilateral ankle at the ankle area. RECTAL/GENITOURINARY: Refused and deferred. PSYCHIATRIC: Mood and affect is intact. NEUROLOGIC: Cranial nerves II through XII grossly intact. Motor is 5/5 in all extremities. Gait was not assessed. Assessment/Plan Assessment/Plan ASSESSMENT: 1. Shortness of breath and cough due to purulent bronchitis. 2. urinary tract infection=E. coli. 3. Acute asthma exacerbation. 4. Hypertension. 5. Morbid obesity. 6. Hypothyroidism. 7. Diabetes type 2. 8. History of gout. 9. Acute congestive heart failure (LVEF=55%) PLAN: 1. Admit the patient to telemetry. 2. We will follow up with Dr. Gray, Pulmonary Critical Care. 3. Code status is Full Code. 4. antibiotics=ceftriaxone 5. We will monitor laboratory closely as well as cultures 6. Nebulizer treatments. 7. Follow up with PT mobility study 8. Cardiology=Sanjeev Maria MD Mar 10, 2019 18:43
[2019-03-10 20:00] VITALS: BP 160/70
--- NOTE | 2019-03-10 20:41 | Cardiology Progress Note ---
Assessment/Plan Assessment/Plan 1. Coronary artery disease with recent right coronary artery stenting. 2. Status post recent contrast nephropathy and dehydration related. 3. Diabetes mellitus. 4. Hypertension history. 5. Hyperlipidemia. 6. Hypothyroidism. 7. Glaucoma. 8. Acute urinary tract infection. 9. Diastolic failure. tele neg will need to add more norvasc if bp elelvated tomorrow lasix prn Subjective Cardiovascular: Denies: chest pain, lightheadedness Objective Last 24 Hour Vital Signs Date Time Temp Pulse Resp B/P (MAP) Pulse Ox O2 Delivery O2 Flow Rate FiO2 03/10/19 16:00 65 03/10/19 16:00 97.5 66 22 156/78 (104) 94 03/10/19 12:00 60 03/10/19 12:00 97.5 53 22 128/54 (78) 99 03/10/19 10:01 68 146/75 03/10/19 09:00 Room Air 03/10/19 08:00 69 03/10/19 08:00 97.5 68 22 146/75 (98) 95 03/10/19 04:00 61 03/10/19 04:00 98.1 61 18 162/74 (103) 95 03/10/19 00:00 98.1 63 18 171/80 (110) 95 03/10/19 00:00 58 03/09/19 21:00 Room Air 03/09/19 20:49 182/76 General Appearance: no apparent distress, alert Neck: supple Cardiovascular: normal rate Respiratory/Chest: lungs clear Abdomen: normal bowel sounds, non tender, soft Extremities: no swelling Intake and Output 03/09/19 03/10/19 19:00 07:00 Intake Total 110 ml Output Total 300 ml 800 ml Balance -190 ml -800 ml IV Total 110 ml Output Urine Total 300 ml 800 ml Laboratory Tests Test 03/10/19 06:15 White Blood Count 7.2 K/UL (4.8-10.8) Red Blood Count 3.97 M/UL (4.20-5.40) L Hemoglobin 11.1 G/DL (12.0-16.0) L Hematocrit 34.5 % (37.0-47.0) L Mean Corpuscular Volume 87 FL (80-99) Mean Corpuscular Hemoglobin 27.9 PG (27.0-31.0) Mean Corpuscular Hemoglobin Concent 32.1 G/DL (32.0-36.0) Red Cell Distribution Width 13.3 % (11.6-14.8) Platelet Count 213 K/UL (150-450) Mean Platelet Volume 7.1 FL (6.5-10.1) Neutrophils (%) (Auto) 67.7 % (45.0-75.0) Lymphocytes (%) (Auto) 23.7 % (20.0-45.0) Monocytes (%) (Auto) 5.9 % (1.0-10.0) Eosinophils (%) (Auto) 2.1 % (0.0-3.0) Basophils (%) (Auto) 0.6 % (0.0-2.0) Sodium Level 145 MMOL/L (136-145) Potassium Level 3.9 MMOL/L (3.5-5.1) Chloride Level 110 MMOL/L (98-107) H Carbon Dioxide Level 29 MMOL/L (21-32) Anion Gap 6 mmol/L (5-15) Blood Urea Nitrogen 33 mg/dL (7-18) H Creatinine 0.9 MG/DL (0.55-1.30) Estimat Glomerular Filtration Rate mL/min (>60) Glucose Level 103 MG/DL (74-106) Calcium Level 9.2 MG/DL (8.5-10.1) Pro-B-Type Natriuretic Peptide 1383 pg/mL (0-125) H Microbiology Date/Time Source Procedure Growth Status 03/07/19 21:25 Blood Blood Culture - Preliminary NO GROWTH AFTER 24 HOURS Resulted 03/07/19 21:10 Blood Blood Culture - Preliminary NO GROWTH AFTER 24 HOURS Resulted Graham Almendarez MD Mar 10, 2019 20:41
[2019-03-10] MEDS: Enalaprilat 2.5mg/2ml Inj IV PRN (23:57)
[2019-03-11 00:01] VITALS: BP 165/70
[2019-03-11 04:00] VITALS: BP 141/63
[2019-03-11] MEDS: NovoLOG Insulin Flexpen SUBQ SCH ×2 (06:00→11:56)
[2019-03-11 08:00] VITALS: BP 158/81
[2019-03-11 08:34] LABS: BASOPHILS % (AUTO) 0.8 % (0.0-2.0); EOSINOPHILS % (AUTO) 2.8 % (0.0-3.0); HEMOGLOBIN 12.2 G/DL (12.0-16.0); LYMPHOCYTES % (AUTO) 27.9 % (20.0-45.0); MEAN CORPUSCULAR VOLUME 87 FL (80-99); MONOCYTES % (AUTO) 7.4 % (1.0-10.0); NEUTROPHILS % (AUTO) 61.1 % (45.0-75.0); PLATELET COUNT 237 K/UL (150-450); RED BLOOD COUNT 4.36 M/UL (4.20-5.40); RED CELL DISTRIBUTION WIDTH 13.1 % (11.6-14.8)
[2019-03-11] MEDS: Aspirin Baby 81mg ORAL SCH (08:39)
[2019-03-11] MEDS: DULoxetine 30mg cap ORAL SCH (08:39)
[2019-03-11] MEDS: Heparin 5000 units/ml inj SUBQ SCH (08:42)
[2019-03-11 08:48] LABS: ANION GAP 7 mmol/L (5-15); BLOOD UREA NITROGEN 34 mg/dL (7-18); CALCIUM 9.3 MG/DL (8.5-10.1); CARBON DIOXIDE 30 MMOL/L (21-32); CHLORIDE 108 MMOL/L (98-107); CREATININE 1.1 MG/DL (0.55-1.30); SODIUM 145 MMOL/L (136-145)
--- NOTE | 2019-03-11 09:08 | Consultation ---
History of Present Illness General Date patient seen: Mar 11, 2019 Chief Complaint: Upper Respiratory Illness Reason for Consultation: UTI Present Illness HPI Ms. Adan is an 83 yo female with PMHx of Dementia, DM, HTN, Asthma Hypothyroid, Gout, Obesity, CAD s/p PCI and CHF who presented to the ED on with SOB. She reports SOB and cough with yellow sputum. She denies F/C, and dysuria. She was admitted for possible bronchitis and asthma exacerbation. CXR showed NAD and she has been stable on RA. SHehas had no leukocytosis but did have a fever of 101.5 which has now resolved. Her UA was positive and her UCx grew E. coli. ID was consulted for UTI PMHx/PSHx Dementia DM HTN Asthma Hypothyroid Gout Obesity CAD s/p PCI CHF SocHx No E/T/D FamHx Not Contributory Allergies: Coded Allergies: No Known Allergies (Unverified , 04/08/14) Medication History Scheduled Acarbose (Acarbose), 25 MG ORAL THREE TIMES A DAY, (Reported) Alcaftadine (Lastacaft), 1 DROP BOTH EYES DAILY, (Reported) Allopurinol* (Allopurinol*), 100 MG ORAL DAILY, (Reported) Aspirin (Aspirin EC), 81 MG ORAL DAILY, (Reported) Atorvastatin Calcium* (Lipitor*), 10 MG ORAL BEDTIME, (Reported) Azilsartan Med/Chlorthalidone (Edarbyclor 40-25 Mg Tablet), 1 TAB ORAL DAILY, ( Reported) Captopril (Captopril), 25 MG PO NEEDED, (Reported) Cholecalciferol (Vitamin D3)* (Vitamin D*), 2,000 UNITS ORAL DAILY, (Reported) Clopidogrel Bisulfate* (Plavix*), 75 MG ORAL DAILY, (Reported) Donepezil Hcl* (Aricept*), 10 MG ORAL DAILY, (Reported) Duloxetine Hcl* (Cymbalta*), 30 MG ORAL DAILY, (Reported) Ergocalciferol (Vitamin D2)* (Vitamin D*), 50,000 UNIT ORAL ONCE A WEEK, ( Reported) Escitalopram Oxalate* (Lexapro*), 20 MG ORAL DAILY, (Reported) Esomeprazole Magnesium (Nexium), 40 MG ORAL DAILY, (Reported) Ferrous Sulfate* (Ferrous Sulfate*), 325 MG ORAL DAILY, (Reported) Fluticasone/Salmeterol (Advair 250-50 Diskus), 1 PUFF INH NEEDED, (Reported) Gabapentin* (Gabapentin*), 300 MG ORAL BEDTIME, (Reported) Levothyroxine Sodium* (Synthroid*), 100 MCG ORAL DAILY, (Reported) Memantine Hcl* (Namenda*), 10 MG ORAL DAILY, (Reported) Nateglinide (Starlix), 120 MG ORAL BID, (Reported) Nebivolol Hcl (Bystolic*), 5 MG ORAL BEDTIME, (Reported) Olanzapine* (Zyprexa*), 2.5 MG ORAL QHS, (Reported) Risedronate Sodium (Atelvia), 35 MG ORAL ONCE A WEEK, (Reported) Risperidone (Risperidone), 0.5 MG PO BEDTIME, (Reported) Patient History Healthcare decision maker Resuscitation status Full Code Advanced Directive on File Review of Systems ROS Narrative 12 point ROS negative except as noted in the HPI Physical Exam Last 24 Hour Vital Signs Date Time Temp Pulse Resp B/P (MAP) Pulse Ox O2 Delivery O2 Flow Rate FiO2 03/11/19 08:39 70 158/81 03/11/19 04:00 98.7 70 16 141/63 (89) 95 03/11/19 04:00 66 03/11/19 00:07 70 03/11/19 00:01 98.7 66 18 165/70 (101) 95 03/10/19 23:57 167/70 03/10/19 21:00 Room Air 03/10/19 20:00 98.2 62 16 160/70 (100) 95 03/10/19 20:00 65 03/10/19 16:00 65 03/10/19 16:00 97.5 66 22 156/78 (104) 94 03/10/19 12:00 60 03/10/19 12:00 97.5 53 22 128/54 (78) 99 03/10/19 10:01 68 146/75 Intake and Output 03/10/19 03/11/19 18:59 06:59 Output Total 600 ml 500 ml Balance -600 ml -500 ml Output Urine Total 600 ml 500 ml Laboratory Tests Test 03/11/19 08:13 White Blood Count 6.0 K/UL (4.8-10.8) Red Blood Count 4.36 M/UL (4.20-5.40) Hemoglobin 12.2 G/DL (12.0-16.0) Hematocrit 38.0 % (37.0-47.0) Mean Corpuscular Volume 87 FL (80-99) Mean Corpuscular Hemoglobin 27.9 PG (27.0-31.0) Mean Corpuscular Hemoglobin Concent 32.0 G/DL (32.0-36.0) Red Cell Distribution Width 13.1 % (11.6-14.8) Platelet Count 237 K/UL (150-450) Mean Platelet Volume 6.6 FL (6.5-10.1) Neutrophils (%) (Auto) 61.1 % (45.0-75.0) Lymphocytes (%) (Auto) 27.9 % (20.0-45.0) Monocytes (%) (Auto) 7.4 % (1.0-10.0) Eosinophils (%) (Auto) 2.8 % (0.0-3.0) Basophils (%) (Auto) 0.8 % (0.0-2.0) Sodium Level Pending Potassium Level Pending Chloride Level Pending Carbon Dioxide Level Pending Blood Urea Nitrogen Pending Creatinine Pending Estimat Glomerular Filtration Rate Pending Glucose Level Pending Calcium Level Pending Height (Feet): 5 Height (Inches): 2.00 Weight (Pounds): 160 Medications Current Medications Medications (Trade) Dose Ordered Sig/Gino Route PRN Reason Start Time Stop Time Status Last Admin Dose Admin Acetaminophen (Tylenol) 650 mg Q4H PRN ORAL FEVER 03/06/19 22:30 04/05/19 22:29 03/08/19 20:50 Albuterol/ Ipratropium (Albuterol/ Ipratropium) 3 ml EVERY 4 HOURS PRN HHN Shortness of Breath 03/06/19 22:30 03/11/19 22:29 Allopurinol (Zyloprim) 100 mg DAILY ORAL 03/07/19 09:00 04/06/19 08:59 03/10/19 10:01 Amlodipine Besylate (Norvasc) 5 mg DAILY ORAL 03/10/19 09:00 04/09/19 08:59 03/11/19 08:39 Aspirin (ASA) 162 mg DAILY ORAL 03/07/19 09:00 04/06/19 08:59 03/11/19 08:39 Ceftriaxone Sodium 1 gm/ Dextrose 55 ml @ 110 mls/hr DAILY IVPB 03/08/19 12:00 03/15/19 11:59 03/10/19 10:04 Dextrose (Dextrose 50%) 25 ml Q30M PRN IV Hypoglycemia 03/09/19 07:45 04/08/19 07:37 Dextrose (Dextrose 50%) 50 ml Q30M PRN IV hypoglycemia 03/09/19 07:45 04/08/19 07:44 Duloxetine HCl (Cymbalta) 30 mg DAILY ORAL 03/07/19 09:00 04/06/19 08:59 03/11/19 08:39 Enalaprilat (Vasotec) 2.5 mg EVERY 6 HOURS PRN IV sbp more than 160 03/06/19 22:30 04/05/19 22:29 03/10/19 23:57 Gabapentin (Neurontin) 300 mg BEDTIME ORAL 03/07/19 21:00 04/06/19 20:59 03/10/19 21:13 Heparin Sodium (Porcine) (Heparin 5000 units/ml) 5,000 units EVERY 12 HOURS SUBQ 03/07/19 09:00 04/06/19 08:59 03/11/19 08:42 Insulin Aspart (NovoLOG) BEFORE MEALS AND HS SUBQ 03/07/19 06:30 04/06/19 06:29 03/10/19 17:43 Levothyroxine Sodium (Synthroid) 100 mcg ACBREAKFAST ORAL 03/07/19 06:30 04/06/19 06:29 03/11/19 06:00 Nateglinide (Starlix) 120 mg BID ORAL 03/07/19 09:00 04/06/19 08:59 03/11/19 08:39 Nitroglycerin (Ntg) 0.4 mg Q5M PRN SL Prn Chest Pain 03/06/19 22:30 04/05/19 22:29 Polyethylene Glycol (Miralax) 17 gm DAILYPRN PRN ORAL Constipation 03/06/19 22:30 04/05/19 22:29 Promethazine HCl/ Codeine (Phenergan with Codeine) 5 ml Q4H PRN ORAL For Cough 03/06/19 22:45 04/05/19 22:44 Temazepam (Restoril) 15 mg HSPRN PRN ORAL Insomnia 03/06/19 22:30 03/13/19 22:29 Objective Narrative Gen: NAD on RA HEENT: NCAT, MMM, EOMI, PERRL, No Oral lesion, no scleral icterus NECK: full range of motion, supple, no meningismus, No LAD, No JVD LUNGS: CTAB, No W/C, No Accessory muscle use CARDS: RRR, S1, S2, No M/R/G, ABD: Soft, NT, ND, No R/G, + BS, No HSM, No Masses : Deferred Ext: C/C/E, Pulses 2+ B/L (DP, Rad): NEURO: A/O x 2, Strength and Sensation Grossly intact PSYCH: Normal mood and affect SKIN: Warm/dry, No rashes Assessment/Plan Assessment/Plan: 83 yo female with PMHx of Dementia, DM, HTN, Asthma Hypothyroid, Gout, Obesity, CAD s/p PCI and CHF who presented to the ED on 03/07/19 with SOB. UTI Asymptomatic UA weakly psotive UCx - E. coli S/P Ceftriaxone x 4 days Fever to 101.5 now resolved No Leukocytosis SOB resolved - Bronchitis vs Viral illness vs Asthma or CHF CXR - Mild interstitial congestion Patient on RA Positive blood Cx Most likely contaminant Blood Cx CoNS Repat Blood Cx ( NGTD ) Dementia DM HTN Asthma Hypothyroid Gout Obesity CAD s/p PCI CHF PLAN - Continue Ceftriaxone #4/7 =- End date 03/14/19 - On D/C could switch abx to PO Cephalexin 500mg BID to finish the course. - Monitor CBC and Temps - f/u Blood Cx Thank you for this consult. We will continue to follow the patient during this hospitalization. Arun Quiros MD Mar 11, 2019 09:08
[2019-03-11] MEDS: Allopurinol 100mg Tab ORAL SCH (09:12)
[2019-03-11] MEDS: cefTRIAXone 1 GM in D5W 55 ML IVPB SCH (09:12)
[2019-03-11 12:00] VITALS: BP 122/67
[2019-03-11] MEDS ORDERED: NORVASC5 MG ORAL (12:46)
--- NOTE | 2019-03-11 12:48 | Pulmonology Progress Note ---
Assessment/Plan Problems: (1) Purulent bronchitis (2) Acute asthma exacerbation (3) Hypertension (4) History of asthma (5) CAD (coronary artery disease) (6) UTI (urinary tract infection) Assessment/Plan echo reviewed, EF of 50% BC positive , probably contaminated Urine cultures reviewed, Ecoli sensitive to ceftriaxone swallow study today dc planning for am ID evaluation. Subjective ROS Limited/Unobtainable: No Constitutional: Reports: no symptoms HEENT: Repors: no symptoms Allergies: Coded Allergies: No Known Allergies (Unverified , 04/08/14) Objective Last 24 Hour Vital Signs Date Time Temp Pulse Resp B/P (MAP) Pulse Ox O2 Delivery O2 Flow Rate FiO2 03/11/19 12:00 97.3 63 20 122/67 (85) 94 03/11/19 09:00 Room Air 03/11/19 08:39 70 158/81 03/11/19 08:00 67 03/11/19 08:00 98.5 70 20 158/81 (106) 94 03/11/19 04:00 98.7 70 16 141/63 (89) 95 03/11/19 04:00 66 03/11/19 00:07 70 03/11/19 00:01 98.7 66 18 165/70 (101) 95 03/10/19 23:57 167/70 03/10/19 21:00 Room Air 03/10/19 20:00 98.2 62 16 160/70 (100) 95 03/10/19 20:00 65 03/10/19 16:00 65 03/10/19 16:00 97.5 66 22 156/78 (104) 94 Intake and Output 03/10/19 03/11/19 19:00 07:00 Intake Total 120 ml Output Total 600 ml 500 ml Balance -600 ml -380 ml Intake Oral 120 ml Output Urine Total 600 ml 500 ml General Appearance: WD/WN HEENT: normocephalic, atraumatic Respiratory/Chest: chest wall non-tender, lungs clear Cardiovascular: normal peripheral pulses, normal rate Abdomen: soft, non tender, no mass Extremities: no clubbing Neurologic/Psychiatric: 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 engineer II-XII grossly normal Laboratory Tests 03/11/19 08:13: White Blood Count 6.0, Red Blood Count 4.36, Hemoglobin 12.2, Hematocrit 38.0, Mean Corpuscular Volume 87, Mean Corpuscular Hemoglobin 27.9, Mean Corpuscular Hemoglobin Concent 32.0, Red Cell Distribution Width 13.1, Platelet Count 237, Mean Platelet Volume 6.6, Neutrophils (%) (Auto) 61.1, Lymphocytes (%) (Auto) 27.9, Monocytes (%) (Auto) 7.4, Eosinophils (%) (Auto) 2.8, Basophils (%) (Auto ) 0.8, Sodium Level 145, Potassium Level 4.0, Chloride Level 108H, Carbon Dioxide Level 30, Anion Gap 7, Blood Urea Nitrogen 34H, Creatinine 1.1, Estimat Glomerular Filtration Rate , Glucose Level 125H, Calcium Level 9.3 Current Medications Medications (Trade) Dose Ordered Sig/Gino Route PRN Reason Start Time Stop Time Status Last Admin Dose Admin Acetaminophen (Tylenol) 650 mg Q4H PRN ORAL FEVER 03/06/19 22:30 04/05/19 22:29 03/08/19 20:50 Albuterol/ Ipratropium (Albuterol/ Ipratropium) 3 ml EVERY 4 HOURS PRN HHN Shortness of Breath 03/06/19 22:30 03/11/19 22:29 Allopurinol (Zyloprim) 100 mg DAILY ORAL 03/07/19 09:00 04/06/19 08:59 03/11/19 09:12 Amlodipine Besylate (Norvasc) 5 mg DAILY ORAL 03/10/19 09:00 04/09/19 08:59 03/11/19 08:39 Aspirin (ASA) 162 mg DAILY ORAL 03/07/19 09:00 04/06/19 08:59 03/11/19 08:39 Ceftriaxone Sodium 1 gm/ Dextrose 55 ml @ 110 mls/hr DAILY IVPB 03/08/19 12:00 03/15/19 11:59 03/11/19 09:12 Dextrose (Dextrose 50%) 25 ml Q30M PRN IV Hypoglycemia 03/09/19 07:45 04/08/19 07:37 Dextrose (Dextrose 50%) 50 ml Q30M PRN IV hypoglycemia 03/09/19 07:45 04/08/19 07:44 Duloxetine HCl (Cymbalta) 30 mg DAILY ORAL 03/07/19 09:00 04/06/19 08:59 03/11/19 08:39 Enalaprilat (Vasotec) 2.5 mg EVERY 6 HOURS PRN IV sbp more than 160 03/06/19 22:30 04/05/19 22:29 03/10/19 23:57 Gabapentin (Neurontin) 300 mg BEDTIME ORAL 03/07/19 21:00 04/06/19 20:59 03/10/19 21:13 Heparin Sodium (Porcine) (Heparin 5000 units/ml) 5,000 units EVERY 12 HOURS SUBQ 03/07/19 09:00 04/06/19 08:59 03/11/19 08:42 Insulin Aspart (NovoLOG) BEFORE MEALS AND HS SUBQ 03/07/19 06:30 04/06/19 06:29 03/11/19 11:56 Levothyroxine Sodium (Synthroid) 100 mcg ACBREAKFAST ORAL 03/07/19 06:30 04/06/19 06:29 03/11/19 06:00 Nateglinide (Starlix) 120 mg BID ORAL 03/07/19 09:00 04/06/19 08:59 03/11/19 08:39 Nitroglycerin (Ntg) 0.4 mg Q5M PRN SL Prn Chest Pain 03/06/19 22:30 04/05/19 22:29 Polyethylene Glycol (Miralax) 17 gm DAILYPRN PRN ORAL Constipation 03/06/19 22:30 04/05/19 22:29 Promethazine HCl/ Codeine (Phenergan with Codeine) 5 ml Q4H PRN ORAL For Cough 03/06/19 22:45 04/05/19 22:44 Temazepam (Restoril) 15 mg HSPRN PRN ORAL Insomnia 03/06/19 22:30 03/13/19 22:29 Aurora Gray MD Mar 11, 2019 12:48
--- NOTE | 2019-03-11 15:03 | Cardiology Progress Note ---
Assessment/Plan Assessment/Plan 1. Coronary artery disease with recent right coronary artery stenting. 2. Status post recent contrast nephropathy and dehydration related. 3. Diabetes mellitus. 4. Hypertension history. 5. Hyperlipidemia. 6. Hypothyroidism. 7. Glaucoma. 8. Acute urinary tract infection. 9. Diastolic failure. tele neg may need to add more norvasc if bp elelvated as outpt lasix prn only for sob and swelling once a week Subjective Cardiovascular: Denies: chest pain, lightheadedness Respiratory: Denies: shortness of breath Gastrointestinal/Abdominal: Denies: abdominal pain Genitourinary: Denies: burning Subjective sat and walked slowly in the esposito Objective Last 24 Hour Vital Signs Date Time Temp Pulse Resp B/P (MAP) Pulse Ox O2 Delivery O2 Flow Rate FiO2 03/11/19 12:00 97.3 63 20 122/67 (85) 94 03/11/19 12:00 75 03/11/19 09:00 Room Air 03/11/19 08:39 70 158/81 03/11/19 08:00 67 03/11/19 08:00 98.5 70 20 158/81 (106) 94 03/11/19 04:00 98.7 70 16 141/63 (89) 95 03/11/19 04:00 66 03/11/19 00:07 70 03/11/19 00:01 98.7 66 18 165/70 (101) 95 03/10/19 23:57 167/70 03/10/19 21:00 Room Air 03/10/19 20:00 98.2 62 16 160/70 (100) 95 03/10/19 20:00 65 03/10/19 16:00 65 03/10/19 16:00 97.5 66 22 156/78 (104) 94 General Appearance: no apparent distress, alert Neck: supple Cardiovascular: normal rate Respiratory/Chest: lungs clear Abdomen: normal bowel sounds, non tender, soft Extremities: no swelling Intake and Output 03/10/19 03/11/19 19:00 07:00 Intake Total 120 ml Output Total 600 ml 500 ml Balance -600 ml -380 ml Intake Oral 120 ml Output Urine Total 600 ml 500 ml Laboratory Tests Test 03/11/19 08:13 White Blood Count 6.0 K/UL (4.8-10.8) Red Blood Count 4.36 M/UL (4.20-5.40) Hemoglobin 12.2 G/DL (12.0-16.0) Hematocrit 38.0 % (37.0-47.0) Mean Corpuscular Volume 87 FL (80-99) Mean Corpuscular Hemoglobin 27.9 PG (27.0-31.0) Mean Corpuscular Hemoglobin Concent 32.0 G/DL (32.0-36.0) Red Cell Distribution Width 13.1 % (11.6-14.8) Platelet Count 237 K/UL (150-450) Mean Platelet Volume 6.6 FL (6.5-10.1) Neutrophils (%) (Auto) 61.1 % (45.0-75.0) Lymphocytes (%) (Auto) 27.9 % (20.0-45.0) Monocytes (%) (Auto) 7.4 % (1.0-10.0) Eosinophils (%) (Auto) 2.8 % (0.0-3.0) Basophils (%) (Auto) 0.8 % (0.0-2.0) Sodium Level 145 MMOL/L (136-145) Potassium Level 4.0 MMOL/L (3.5-5.1) Chloride Level 108 MMOL/L (98-107) H Carbon Dioxide Level 30 MMOL/L (21-32) Anion Gap 7 mmol/L (5-15) Blood Urea Nitrogen 34 mg/dL (7-18) H Creatinine 1.1 MG/DL (0.55-1.30) Estimat Glomerular Filtration Rate mL/min (>60) Glucose Level 125 MG/DL (74-106) H Calcium Level 9.3 MG/DL (8.5-10.1) Graham Almendarez MD Mar 11, 2019 15:03
--- NOTE | 2019-03-11 17:02 | Internal Med Progress Note ---
Subjective Date of Service: Mar 11, 2019 Physician Name Sanjeev Stockton Attending Physician Rob Ann MD Allergies: Coded Allergies: No Known Allergies (Unverified , 04/08/14) ROS Limited/Unobtainable: No Constitutional: Reports: no symptoms HEENT: Reports: no symptoms Cardiovascular: Reports: no symptoms Respiratory: Reports: cough Gastrointestinal/Abdominal: Reports: no symptoms Genitourinary: Reports: no symptoms Neurologic/Psychiatric: Reports: no symptoms Subjective 83 YO F admitted with shortness of breath. Now asthma exacerbation with bronchitis. Aslo UTI. Cover for Int Med-Dr Ann Objective Last Vital Signs Date Time Temp Pulse Resp B/P (MAP) Pulse Ox O2 Delivery O2 Flow Rate FiO2 03/11/19 12:00 97.3 63 20 122/67 (85) 94 03/11/19 09:00 Room Air 03/09/19 08:12 21 Laboratory Tests Test 03/11/19 08:13 White Blood Count 6.0 K/UL (4.8-10.8) Red Blood Count 4.36 M/UL (4.20-5.40) Hemoglobin 12.2 G/DL (12.0-16.0) Hematocrit 38.0 % (37.0-47.0) Mean Corpuscular Volume 87 FL (80-99) Mean Corpuscular Hemoglobin 27.9 PG (27.0-31.0) Mean Corpuscular Hemoglobin Concent 32.0 G/DL (32.0-36.0) Red Cell Distribution Width 13.1 % (11.6-14.8) Platelet Count 237 K/UL (150-450) Mean Platelet Volume 6.6 FL (6.5-10.1) Neutrophils (%) (Auto) 61.1 % (45.0-75.0) Lymphocytes (%) (Auto) 27.9 % (20.0-45.0) Monocytes (%) (Auto) 7.4 % (1.0-10.0) Eosinophils (%) (Auto) 2.8 % (0.0-3.0) Basophils (%) (Auto) 0.8 % (0.0-2.0) Sodium Level 145 MMOL/L (136-145) Potassium Level 4.0 MMOL/L (3.5-5.1) Chloride Level 108 MMOL/L (98-107) H Carbon Dioxide Level 30 MMOL/L (21-32) Anion Gap 7 mmol/L (5-15) Blood Urea Nitrogen 34 mg/dL (7-18) H Creatinine 1.1 MG/DL (0.55-1.30) Estimat Glomerular Filtration Rate mL/min (>60) Glucose Level 125 MG/DL (74-106) H Calcium Level 9.3 MG/DL (8.5-10.1) Intake and Output 03/10/19 03/11/19 19:00 07:00 Intake Total 120 ml Output Total 600 ml 500 ml Balance -600 ml -380 ml Intake Oral 120 ml Output Urine Total 600 ml 500 ml Objective PHYSICAL EXAMINATION: GENERAL: The patient is awake, responsive, and in no acute distress. HEAD AND NECK: Pupils are equal and reactive to light. Anicteric. NECK: Supple. No jugular venous distention. LUNGS: Good air entry. Expiratory wheezes. No rhonchi. HEART: S1, S2. Distant heart sounds. No murmur or gallops. ABDOMEN: Soft, nondistended, and nontender. Morbidly obese. EXTREMITIES: No cyanosis or clubbing. A +1 edema of bilateral lower extremity with hyperpigmentation and erythema on the bilateral ankle at the ankle area. RECTAL/GENITOURINARY: Refused and deferred. PSYCHIATRIC: Mood and affect is intact. NEUROLOGIC: Cranial nerves II through XII grossly intact. Motor is 5/5 in all extremities. Gait was not assessed. Assessment/Plan Assessment/Plan ASSESSMENT: 1. Shortness of breath and cough due to purulent bronchitis. 2. urinary tract infection=E. coli. 3. Acute asthma exacerbation. 4. Hypertension. 5. Morbid obesity. 6. Hypothyroidism. 7. Diabetes type 2. 8. History of gout. 9. Acute congestive heart failure (LVEF=55%) PLAN: 1. Admit the patient to telemetry. 2. We will follow up with Dr. Gray, Pulmonary Critical Care. 3. Code status is Full Code. 4. antibiotics=ceftriaxone 5. We will monitor laboratory closely as well as cultures 6. Nebulizer treatments. 7. Follow up with PT mobility study 8. Cardiology=Dr Almendarez 9. Discharge home today Sanjeev Stockton MD Mar 11, 2019 17:02
--- NOTE | 2019-03-12 12:17 | Discharge Summary ---
Discharge Summary Discharge Summary _ Discharge summary DATE OF ADMISSION: 03/06/2019 DATE OF DISCHARGE: 03/11/2019 DISCHARGED: by Dr. Ann REASON FOR ADMISSION: 83 years old female with past medical history of congestive heart failure, hypertension, diabetes mellitus type 2, asthma, hypothyroidism, gout, obesity, presented to the hospital complaining of shortness of breath and cough for few days. Cough reported as being productive with yellow color phlegm. She denied fever and chills. She denied nausea and vomiting. She denied chest pain. After initial evaluation in emergency department patient was admitted to telemetry floor with shortness of breath and cough, possibly due to bronchopneumonia and acute asthma exacerbation. Laboratory work was unremarkable. EKG revealed normal sinus rhythm , no acute ischemic changes. Troponin was negative , pro BNP 1793 . Chest x-ray demonstrated no definite acute process. CONSULTANTS: chief of hospital medicine Dr. Almendarez pulmonary Dr. Gray [facility]: Patient admitted to telemetry floor. Supplemental oxygen provided and titrated to keep pulse oximetry above 90%. Pulmonary toilet with bronchodilator provided as needed. Patient received antitussive on as needed basis. Patient started on empiric antibiotic. Urine culture revealed E. coli. Blood culture revealed 1 out of 4 Staph coagulase-negative , likely contaminant . Repeated blood cultures were negative . No leukocytosis , no fever. Echocardiogram revealed preserved ejection fraction of 55% with right ventricular systolic pressure of 23, moderate aortic regurgitation and mild left ventricular hypertrophy. Aluminizer followed. Serial troponin were negative, EKG revealed no acute ischemic changes. Patient was ruled out for acute VT. Leg edema was chronic as per patient. Per chief of hospital medicine, no angina or CHF symptoms. Patient received Lasix two times: one time in ER and one time during the stay for pulmonary congestion. Aluminizer recommended to use Lasix only as needed for shortness of breath and leg swelling- once a week. Antiplatelet therapy with aspirin continued. Lipid panel was stable. Patient noted to have mild bradycardia in high 50s on telemetry . Patient remained asymptomatic, no block or arrhythmia on telemetry. Initially beta annamaria dose was decreased, without change in heart rate . Subsequently beta-annamaria was stopped , and patient started on calcium channel annamaria. Blood pressure was managed with calcium channel annamaria and remained stable. Blood sugar was managed with Starlix and sliding scale of insulin as needed. Hemoglobin A1c- 6.0, at goal. DVT prophylaxis provided. TSH at goal. Current dose of levothyroxine was continued. Supportive care provided. Patient clinically stabilized and was ready for discharge home. FINAL DIAGNOSES: Purulent bronchitis Acute asthma exacerbation E coli UTI Congestive heart failure, diastolic Hypertension Diabetes mellitus Hypothyroidism on Coronary artery disease with history of recent stent placement Gout Obesity Status post recent contrast nephropathy and dehydration related DISCHARGE MEDICATIONS: See Medication Reconciliation list. DISCHARGE INSTRUCTIONS: Patient was discharged home with home health services. Follow up with primary care provider in one week. Hetal Samuels NP Mar 12, 2019 12:17
== END 2019-03-11 16:35 | disposition home or self-care (01) | DRG 202 ==
LOC: EMR 19:00 → 2E 21:40 → EDBEDREQ 21:54 → 2E 03-09 16:30
DX: J45.901 Unspecified asthma with (acute) exacerbation (principal); I50.33 Acute on chronic diastolic (congestive) heart failure; N39.0 Urinary tract infection, site not specified; I11.0 Hypertensive heart disease with heart failure; J41.1 Mucopurulent chronic bronchitis; B96.20 Unspecified Escherichia coli [E. coli] as the cause of diseases classified elsewhere; E03.9 Hypothyroidism, unspecified; E11.9 Type 2 diabetes mellitus without complications; K44.9 Diaphragmatic hernia without obstruction or gangrene; I25.10 Atherosclerotic heart disease of native coronary artery without angina pectoris; Z95.5 Presence of coronary angioplasty implant and graft; M10.9 Gout, unspecified; H40.9 Unspecified glaucoma; K21.9 Gastro-esophageal reflux disease without esophagitis; Z68.28 Body mass index [BMI] 28.0-28.9, adult; E66.9 Obesity, unspecified
CPT/HCPCS: 36415; 71045; 80048; 80053; 80061; 81003; 82550; 82553; 82962; 83036; 83605; 83880; 84443; 84484; 85025; 85610; 85730; 86140; 87040; 87086; 87181; 93005; 93306; 94664; 96365; 96375; 99285; J1815